=== PATIENT | male | born 1960 | race Two or more races ===

== ENCOUNTER 2016-10-23 15:01 | Inpatient (IN) | payer MEDICAID ==
[2016-10-23 16:06] LABS: HEMOGLOBIN 12.5 gm/dL (13.2-17.3); MEAN CELL VOLUME 100.9 fl (80-99); MEAN CORPUSCULAR HEMOGLOBIN 38.4 pg (26.0-30.0); PLATELET COUNT 45 Th/cmm (150-400); RED BLOOD COUNT 3.27 Mil/cmm (4.30-5.70); RED CELL DISTRIBUTION WIDTH 18.4 % (11.5-20.0); WHITE BLOOD COUNT 7.3 Th/cmm (4.8-10.8)
[2016-10-23 16:17] LABS: CHOLESTEROL 88 mg/dL (<200); TRIGLYCERIDES 63 mg/dL (<150)
[2016-10-23 16:18] LABS: ANION GAP 5.9 (7.0-16.0); BUN - UREA NITROGEN 18 mg/dL (7-25); CARBON DIOXIDE 23.7 mEq/L (21.0-31.0); CHLORIDE 105 mEq/L (98-107); CREATININE - SERUM 0.6 mg/dL (0.7-1.3); GLUCOSE 134 mg/dL (70-105); POTASSIUM SERUM 3.6 mEq/L (3.5-5.1); SODIUM SERUM 131 mEq/L (136-145)
[2016-10-23 16:19] LABS: ALB/GLOB RATIO 0.5 (1.0-1.8); ALKALINE PHOSPHATASE 78 U/L (34-104); BILIRUBIN,TOTAL 5.8 mg/dL (0.3-1.0); CALCIUM SERUM 8.8 mg/dL (8.6-10.3); SGOT 64 U/L (13-39); SGPT/ALT 52 U/L (7-52)
[2016-10-23 16:31] LABS: ANISOCYTOSIS 1+; BAND NEUTROPHILE 6 % (0-10); BASOPHIL 1 % (0-3); NEUTROPHILS 84 % (40-80); PLATELET MORPHOLOGY NORMAL (NORMAL); POLYCHROMASIA 1+; TOTAL CELLS COUNTED 100
[2016-10-23 16:32] LABS: PLATELET ESTIMATE DECREASED PLATELETS (NORMAL)
[2016-10-23] MEDS ORDERED: cefTRIAXone 1 GM in Sodium Chloride 0.9% 50 ML IV ONE (17:00)
--- NOTE | 2016-10-23 18:16 | ED Physician Chart ---
Chief Complaint/HPI - Patient Information Date Seen:: 10/23/16 Time Seen:: 15:40 Chief Complaint:: bleeding History of Present Illness:: THIS IS A 56 YO MALE [facility]IB [facility] STATING THAT THE PATIENT WAS JUST DISCHARGED FOR ANOTHER HOSPITAL BUT WENT DOWN FROM WEAKNESS. HE HAS A HISTORY OF ACOHOLIC LIVER DISEASE AND A BLEEDING DISORDER. Allergies:: Allergies Allergy/AdvReac Type Severity Reaction Status Date / Time Penicillins [PCN] AdvReac HEART Verified 10/23/16 15:50 PALPITATIONS Vitals:: Vital Signs - 8 hr 10/23/16 10/23/16 10/23/16 15:15 16:46 18:07 Temp 98.7 F HR 95 92 RR 20 18 75 BP 125/69 104/62 132/68 O2 Sat % 100 96 98 Historian:: Patient, Medical Records Review:: Nurse's Note Reviewed Review of Systems - Review of Systems General/Constitutional: No fever, No chills, Weight loss, Weakness, No diaphoresis, No edema, No loss of appetite Skin: No skin lesions, No rash, No bruising Head: No headache, No light-headedness Eyes: No loss of vision, No pain, No diplopia ENT: No earache, No nasal drainage, No sore throat, No tinnitus Neck: No neck pain, No swelling, No thyromegaly, No stiffness, No mass noted Cardio Vascular: No chest pain, No palpitations, No PND, No orthopnea, No edema Pulmonary: No SOB, No cough, No sputum, No wheezing GI: Nausea, Vomiting, No vomiting, No diarrhea, No pain, No hematochezia, No constipation, No hematemesis G/U: No dysuria, No frequency, Hematuria Musculoskeletal: No bone or joint pain, No back pain, No muscle pain Endocrine: No polyuria, No polydipsia Psychiatric: No prior psych history, No depression, No anxiety, No suicidal ideation Hematopoietic: No bruising, No lymphadenopathy Allergic/Immuno: No urticaria, No angioedema Neurological: No syncope, No focal symptoms, Weakness, No paresthesia, No headache, No seizure, No dizziness, No confusion, No vertigo Past Medical History - Past Medical History Obtainable: Yes Past Medical History: HTN, Dyslipidemia, PUD/GERD, Dementia, Other (CIRRHOSIS) Family History: None Social History: Non Smoker, Alcohol, No Drug Use Surgical History: None Psychiatricy History: Depression Medication: Reviewed Family Medical History - Family Member Mother History Unknown: Yes Physical Exam - Physical Examination General/Constitutional: Awake, Well-developed, well-nourished, Alert, No distress, GCS 15, Non-toxic appearing, Ambulatory Head: Atraumatic Eyes: Lids, conjuctiva normal, PERRL, EOMI Skin: Nl inspection, No rash, No skin lesions, No ecchymosis, Well hydrated, No lymphadenopathy ENMT: External ears, nose nl, Nasal exam nl, Lips, teeth, gums nl Neck: Nontender, Full ROM w/o pain, No JVD, No nuchal rigidity, No bruit, No mass, No stridor Respiratory: Nl effort/Exclusion, Clear to Auscultation, No Wheeze/Rhonchi/Rales Cardio Vascular: RRR, No murmur, gallop, rubs, NL S1 S2 GI: No tenderness/rebounding/guarding, No organomegaly, No hernia, Normal BS's, Nondistended, No mass/bruits, No McBurney tenderness : No CVA tenderness Extremities: No tenderness or effusion, Full ROM, normal strength in all extremities, No edema, Normal digits & nails Neuro/Psych: Alert/oriented, DTR's symmetric, Normal sensory exam, Normal motor strength, Judgement/insight normal, Mood normal, Normal gait, No focal deficits Misc: normal gait, Normal back, No paraspinal tenderness Labs/Radiology/EKG Results - Lab Results Results: Laboratory Tests 10/23/16 10/23/16 10/23/16 14:30 14:30 14:30 WBC 7.3 RBC 3.27 L Hgb 12.5 L Hct 33.0 L MCV 100.9 H MCH 38.4 H MCHC Differential 38.0 H RDW 18.4 Plt Count 45 L MPV 8.0 Band Neutrophils % 6 Neutrophils (Manual) 84 H Lymphocytes 6 L Monocytes 3 Basophils 1 Platelet Estimate DECREASED PLATELETS Platelet Morphology NORMAL Polychromasia 1+ Anisocytosis 1+ RBC Morph Micro Appear ABNORMAL Sodium 131 L Potassium 3.6 Chloride 105 Carbon Dioxide 23.7 Anion Gap 5.9 L BUN 18 Creatinine 0.6 L Est GFR ( Amer) > 60.0 Est GFR (Non-Af Amer) > 60.0 BUN/Creatinine Ratio 30.0 Glucose 134 H Calcium 8.8 Total Bilirubin 5.8 H AST 64 H ALT 52 Alkaline Phosphatase 78 Ammonia Troponin I Total Protein 7.9 Albumin 2.6 L Globulin 5.3 Albumin/Globulin Ratio 0.5 L Triglycerides 63 Cholesterol 88 LDL Cholesterol Direct 53 L HDL Cholesterol 30 Amylase TSH 10/23/16 10/23/16 10/23/16 14:30 14:30 14:30 WBC RBC Hgb Hct MCV MCH MCHC Differential RDW Plt Count MPV Band Neutrophils % Neutrophils (Manual) Lymphocytes Monocytes Basophils Platelet Estimate Platelet Morphology Polychromasia Anisocytosis RBC Morph Micro Appear Sodium Potassium Chloride Carbon Dioxide Anion Gap BUN Creatinine Est GFR ( Amer) Est GFR (Non-Af Amer) BUN/Creatinine Ratio Glucose Calcium Total Bilirubin AST ALT Alkaline Phosphatase Ammonia Troponin I < 0.01 L Total Protein Albumin Globulin Albumin/Globulin Ratio Triglycerides Cholesterol LDL Cholesterol Direct HDL Cholesterol Amylase 34 TSH 0.81 10/23/16 14:30 WBC RBC Hgb Hct MCV MCH MCHC Differential RDW Plt Count MPV Band Neutrophils % Neutrophils (Manual) Lymphocytes Monocytes Basophils Platelet Estimate Platelet Morphology Polychromasia Anisocytosis RBC Morph Micro Appear Sodium Potassium Chloride Carbon Dioxide Anion Gap BUN Creatinine Est GFR ( Amer) Est GFR (Non-Af Amer) BUN/Creatinine Ratio Glucose Calcium Total Bilirubin AST ALT Alkaline Phosphatase Ammonia 71 H Troponin I Total Protein Albumin Globulin Albumin/Globulin Ratio Triglycerides Cholesterol LDL Cholesterol Direct HDL Cholesterol Amylase TSH - Radiology Results Results: CHEST X-RAY = NAD ED Septic Shock - . Is Septic Shock (SBP<90, OR Lactate>4 mmol\L) present?: No - <6hrs of presentation: Vital Signs: Vital Signs - 8 hr 10/23/16 10/23/16 10/23/16 15:15 16:46 18:07 Temp 98.7 F HR 95 92 RR 20 18 75 BP 125/69 104/62 132/68 O2 Sat % 100 96 98 Reassessment (Disposition) - Reassessment Reassessment Condition:: Unchanged - Diagnosis Diagnosis:: LIVER FAILURE LOW PLATELETS ELEVATED AMONIUM ELEVATED BILIRUBIN - Patient Disposition Discharge/Transfer:: Acute Care w/in this hosp Admitting Medical Physician:: Madelyn Valdivia Condition at Disposition:: Improved
[2016-10-23 18:24] LABS: URINE COLOR AMBER
[2016-10-23 18:25] LABS: URINE BILIRUBIN MODERATE (NEGATIVE); URINE BLOOD NEGATIVE (NEGATIVE); URINE GLUCOSE (UA) NEGATIVE (NEGATIVE); URINE KETONE TRACE mg/dL (NEGATIVE); URINE PH 5.5; URINE PROTEIN TRACE mg/dL (NEGATIVE)
[2016-10-23 18:26] LABS: URINE BACTERIA FEW /hpf (NONE SEEN); URINE EPITHELIAL CELLS OCCASIONAL /lpf (FEW); URINE RBC NONE SEEN /hpf (0-5); URINE WBC 0-2 /hpf (0-5)
[2016-10-23 18:39] LABS: INR 1.37 (0.5-1.4); PROTHROMBIN TIME (TEST) 13.9 SECONDS (9.5-11.5)
[2016-10-23] MEDS: D5-0.45NS 1,000 ML IV SCH (21:42)
--- NOTE | 2016-10-23 22:21 | Admit Criteria Form ---
Admit Criteria Forms - Admit Criteria Diagnosis: LIVER DISEASE COMPLICATIONS Clinical Indications for Admission to Inpatient Care (Place 'X' for any and all applicable criteria): Admission is indicated for patient with ANY ONE of the following(1)(2)(3)(4): [X]I. Inpatient admission required rather than observation care because of ANY ONE of the following: [ ]a) Hemodynamic instability that is severe or persistent [ ]b) Severe electrolyte abnormalities requiring inpatient care [ ]c) Respiratory compromise that is severe or persistent [X]d) Coagulation abnormal that is severe or persistent [ ]e) Severe pain requiring acute inpatient management [ ]f) Renal insufficiency that is severe or worsening [ ]g) Metabolic abnormalities (e.g., vomiting, hypoglycemia, acidosis) that are severe or persistent [ ]h) Hypovolemia or hypervolemia that is severe or persistent [ ]i) Absent bowel sounds with complete ileus(2) [ ]j) Signs of intestinal obstruction or peritonitis[A] [ ]k) IV fluid to replace significant ongoing losses (>3 L/m2 per day) [ ]l) Continuous IV infusion of anticoagulation, platelet inhibitor, vasoactive, or antiarrhythmic medication [ ]m) Percutaneous or open drainage (e.g., abscess, biliary tract) procedures [ ]n) Parenteral nutrition regimen that must be implemented on inpatient basis [ ]o) Other condition treatment or monitoring requiring inpatient admission [ ]II. Infected hepatic hydrothorax (eg, empyema) [ ]III. Hepatorenal syndrome (eg, elevated. creatinine with adequate volume status and negative evaluation for other cause)(8) [ ]IV. Spontaneous bacterial peritonitis [ ]V. Suspected infected ascites as indicated by ANY ONE of the following: [ ]a) Temp >100 degrees F (37.8 C ) [ ]b) High WBC count [ ]c) Abdominal pain or tenderness not relieved by paracentesis [ ]. New-onset or worsening hepatic encephalopathy(7) [ ]VII. Suspected fulminant hepatic failure (e.g., acute coagulopathy with hepatic encephalopathy or acute elevation of hepatic transaminases to more than 15 times baseline)(4) [ ]VIII. Acute hepatitis (e.g., ALT and AST at least 3 times baseline) with coagulopathy or severe jaundice as indicated by ANY ONE of the following(9)(10): [ ]a) Bilirubin >20 mg/dL (342 moles/L)(11) [ ]b) Acute elevation of PT to >50% above normal or INR >1.5 [ ] IX. Treatment of injury from hepatotoxin (e.g., acetaminophen) that requires inpatient monitoring [ ] X. Acute fatty liver of Extended stay beyond goal length of stay may be needed for(3)(7): [ ]a) Hepatorenal syndrome [ ]b) Severe or persistent hepatic encephalopathy [ ]c) Renal failure due to other causes associated with cirrhosis (e.g., hypovolemia) [ ]d) Severe or persistent coagulation abnormalities [ ]e) Refractory ascites, volume, or electrolyte abnormality [ ]f) Severe or persistent gastroesophageal bleeding [ ]g) Severe infectious or hepatotoxin-induced hepatitis (eg, acetaminophen) [ ]h) Hemodynamic instability that is severe or persistent The original [employer] content created by [employer] has been revised. The portions of the content which have been revised are identified through the use of italic text or in bold, and [facility] has neither reviewed nor approved the modified material. All other unmodified content is copyright [facility]. Please see references footnoted in the original [facility] edition 2016 Admit Criteria Met?: Yes
[2016-10-23] MEDS: Lactulose 10 Gm/15 mL 30mL UDC PO SCH (23:56)
[2016-10-24] MEDS: Lactulose 10 Gm/15 mL 30mL UDC PO SCH ×4 (00:22→21:20)
[2016-10-24 02:08] VITALS: BP 99/61
[2016-10-24 06:46] LABS: HEMATOCRIT 30.6 % (39.0-49.0); HEMOGLOBIN 10.9 gm/dL (13.2-17.3); MEAN CELL VOLUME 99.5 fl (80-99); MEAN CORPUSCULAR HEMOGLOBIN 35.6 pg (26.0-30.0); MEAN CORPUSCULAR HGB CONC 35.8 pg (28.0-36.0); PLATELET COUNT 43 Th/cmm (150-400); RED BLOOD COUNT 3.08 Mil/cmm (4.30-5.70); RED CELL DISTRIBUTION WIDTH 18.2 % (11.5-20.0); WHITE BLOOD COUNT 8.1 Th/cmm (4.8-10.8)
[2016-10-24 06:57] LABS: INR 1.68 (0.5-1.4); PROTHROMBIN TIME (TEST) 17.2 SECONDS (9.5-11.5)
[2016-10-24 07:16] LABS: ANISOCYTOSIS 1+; BAND NEUTROPHILE 7 % (0-10); NEUTROPHILS 76 % (40-80); PLATELET ESTIMATE DECREASED PLATELETS (NORMAL); PLATELET MORPHOLOGY NORMAL (NORMAL); POLYCHROMASIA 1+; TOTAL CELLS COUNTED 100
[2016-10-24 07:19] LABS: ALB/GLOB RATIO 0.5 (1.0-1.8); ALKALINE PHOSPHATASE 65 U/L (34-104); ANION GAP 7.4 (7.0-16.0); BILIRUBIN,DIRECT 3.32 mg/dL (0.0-0.2); BILIRUBIN,TOTAL 6.3 mg/dL (0.3-1.0); BUN - UREA NITROGEN 19 mg/dL (7-25); BUN/CREATININE RATIO 31.7; CALCIUM SERUM 8.6 mg/dL (8.6-10.3); CARBON DIOXIDE 24.9 mEq/L (21.0-31.0); CHLORIDE 105 mEq/L (98-107); CREATININE - SERUM 0.6 mg/dL (0.7-1.3); GLUCOSE 121 mg/dL (70-105); POTASSIUM SERUM 3.3 mEq/L (3.5-5.1); SGOT 47 U/L (13-39); SGPT/ALT 41 U/L (7-52); SODIUM SERUM 134 mEq/L (136-145)
--- NOTE | 2016-10-24 09:15 | Diagnostic Imaging Report ---
CHEST X-RAY: AP view INDICATION: Bleeding, shortness of breath COMPARISON: None FINDINGS: Chronic lung changes are noted. Suboptimal lung volumes are seen with increased left basal lung markings. No focal consolidation pleural effusions. Borderline cardiomegaly is noted. Degenerative changes of the spine are noted. IMPRESSION: Chronic lung changes and suboptimal lung volumes. Increased left basal lung markings are seen which may be due to subsegmental atelectasis versus scarring. Superimposed developing infiltrate is considered less likely. No focal airspace consolidation identified.
--- NOTE | 2016-10-24 09:19 | General Progress Note ---
Subjective - Review of Systems Service Date: 10/23/16 Subjective: c/o sob Objective - Results Result Diagrams: 10/26/16 10:52 10/26/16 10:52 Recent Labs: Laboratory Last Values WBC 8.1 Th/cmm (4.8-10.8) 10/24/16 06:30 RBC 3.08 Mil/cmm (4.30-5.70) L 10/24/16 06:30 Hgb 10.9 gm/dL (13.2-17.3) L 10/24/16 06:30 Hct 30.6 % (39.0-49.0) L 10/24/16 06:30 MCV 99.5 fl (80-99) H 10/24/16 06:30 MCH 35.6 pg (26.0-30.0) H 10/24/16 06:30 MCHC Differential 35.8 pg (28.0-36.0) 10/24/16 06:30 RDW 18.2 % (11.5-20.0) 10/24/16 06:30 Plt Count 43 Th/cmm (150-400) L 10/24/16 06:30 MPV 8.0 fl 10/24/16 06:30 Band Neutrophils % 7 % (0-10) 10/24/16 06:30 Neutrophils (Manual) 76 % (40-80) 10/24/16 06:30 Lymphocytes 13 % (20-50) L 10/24/16 06:30 Monocytes 4 % (2-10) 10/24/16 06:30 Basophils 1 % (0-3) 10/23/16 14:30 Platelet Estimate DECREASED PLATELETS (NORMAL) 10/24/16 06:30 Platelet Morphology NORMAL (NORMAL) 10/24/16 06:30 Polychromasia 1+ 10/24/16 06:30 Anisocytosis 1+ 10/24/16 06:30 RBC Morph Micro Appear ABNORMAL (NORMAL) 10/24/16 06:30 PT 17.2 SECONDS (9.5-11.5) H 10/24/16 06:30 INR 1.68 (0.5-1.4) H 10/24/16 06:30 PTT (Actin FS) 33.6 SECONDS (26.0-38.0) 10/24/16 06:30 Sodium 134 mEq/L (136-145) L 10/24/16 06:30 Potassium 3.3 mEq/L (3.5-5.1) L 10/24/16 06:30 Chloride 105 mEq/L (98-107) 10/24/16 06:30 Carbon Dioxide 24.9 mEq/L (21.0-31.0) 10/24/16 06:30 Anion Gap 7.4 (7.0-16.0) 10/24/16 06:30 BUN 19 mg/dL (7-25) 10/24/16 06:30 Creatinine 0.6 mg/dL (0.7-1.3) L 10/24/16 06:30 Est GFR ( Amer) > 60.0 ml/min (>90) 10/24/16 06:30 Est GFR (Non-Af Amer) > 60.0 ml/min 10/24/16 06:30 BUN/Creatinine Ratio 31.7 10/24/16 06:30 Glucose 121 mg/dL (70-105) H 10/24/16 06:30 Calcium 8.6 mg/dL (8.6-10.3) 10/24/16 06:30 Total Bilirubin 6.3 mg/dL (0.3-1.0) H 10/24/16 06:30 Direct Bilirubin 3.32 mg/dL (0.0-0.2) H 10/24/16 06:30 AST 47 U/L (13-39) H 10/24/16 06:30 ALT 41 U/L (7-52) 10/24/16 06:30 Alkaline Phosphatase 65 U/L (34-104) 10/24/16 06:30 Ammonia 60 umol/L (16-53) H 10/24/16 06:30 Troponin I < 0.01 ng/mL (0.01-0.05) L 10/23/16 14:30 Total Protein 6.8 gm/dL (6.0-8.3) 10/24/16 06:30 Albumin 2.2 gm/dL (4.2-5.5) L 10/24/16 06:30 Globulin 4.6 gm/dL 10/24/16 06:30 Albumin/Globulin Ratio 0.5 (1.0-1.8) L 10/24/16 06:30 Triglycerides 63 mg/dL (<150) 10/23/16 14:30 Cholesterol 88 mg/dL (<200) 10/23/16 14:30 LDL Cholesterol Direct 53 mg/dL (75-193) L 10/23/16 14:30 HDL Cholesterol 30 mg/dL (23-92) 10/23/16 14:30 Amylase 34 U/L (29-103) 10/23/16 14:30 TSH 0.81 uIU/ml (0.34-5.60) 10/23/16 14:30 Urine Source CLEAN C 10/23/16 17:30 Urine Color ROBBIE 10/23/16 17:30 Urine Clarity SLIGHTLY CLOUDY (CLEAR) 10/23/16 17:30 Urine pH 5.5 10/23/16 17:30 Ur Specific [place] 1.025 (1.005-1.030) 10/23/16 17:30 Urine Protein TRACE mg/dL (NEGATIVE) 10/23/16 17:30 Urine Glucose (UA) NEGATIVE mg/dL (NEGATIVE) 10/23/16 17:30 Urine Ketones TRACE mg/dL (NEGATIVE) 10/23/16 17:30 Urine Blood NEGATIVE (NEGATIVE) 10/23/16 17:30 Urine Nitrate POSITIVE (NEGATIVE) H 10/23/16 17:30 Urine Bilirubin MODERATE (NEGATIVE) H 10/23/16 17:30 Urine Urobilinogen 4.0 E.U./dL (0.2 - 1.0) H 10/23/16 17:30 Ur Leukocyte Esterase NEGATIVE (NEGATIVE) 10/23/16 17:30 Urine RBC NONE SEEN /hpf (0-5) 10/23/16 17:30 Urine WBC 0-2 /hpf (0-5) 10/23/16 17:30 Ur Epithelial Cells OCCASIONAL /lpf (FEW) 10/23/16 17:30 Urine Bacteria FEW /hpf (NONE SEEN) 10/23/16 17:30 Urine Mucus MODERATE /lpf (FEW) 10/23/16 17:30 RPR NONREACTIVE (NONREACTIVE) 10/23/16 14:30 - Physical Exam Vitals and I&O: Vital Signs Temp 99.0 F 10/24/16 07:57 Pulse 87 10/24/16 07:57 Resp 17 10/24/16 07:57 BP 89/54 10/24/16 07:57 Pulse Ox 93 02/07/17 07:57 Intake & Output 10/23/16 10/24/16 10/24/16 18:59 06:59 18:59 Intake Total 100 Balance 100 Intake: Oral 100 Other: # Voids 2 # Bowel Movements 1 Stool Characteristics Black Active Medications: Current Medications Dextrose/Sodium Chloride (D5-0.45ns) 1,000 mls @ 75 mls/hr IV .[id number] [facility] Stop: 12/22/16 20:44 Last Admin: 10/23/16 21:42 Dose: 75 mls/hr Ceftriaxone Sodium 1 gm/ (Sodium Chloride) 50 mls @ 100 mls/hr IV Q24HR [facility] Stop: 12/23/16 20:59 Ibuprofen (Motrin) 400 mg PO Q4H PRN PRN Reason: Pain or Fever >101 Stop: 12/22/16 20:39 Last Admin: 10/24/16 07:34 Dose: 400 mg Influenza Virus Vaccine (Fluarix) 0.5 ml IM .ONCE ONE Stop: 10/24/16 10:23 Lactulose (Cephulac) 60 gm PO Q8H [facility] Stop: 12/22/16 20:44 Last Admin: 10/24/16 07:17 Dose: Not Given Pneumococcal Polyvalent Vaccine (Pneumovax) 0.5 ml IM .ONCE ONE Stop: 10/24/16 10:23 General: Alert, Moderate distress Neck: Supple Cardiovascular: Regular rate, Normal S1, Normal S2 Lungs: Clear to auscultation Abdomen: Bowel sounds Neurological: Normal gait Assessment/Plan - Problem List Patient Problems: All Active Problems copd (Acute) htn (Acute) - Plan Plan: discharge planning
[2016-10-24] MEDS: D5-0.45NS 1,000 ML IV SCH ×2 (09:35→23:27)
[2016-10-24] MEDS ORDERED: Influenza Vaccine 0.5 mL Syr IM ONE (10:22)
[2016-10-24] MEDS ORDERED: Pneumococcal Vaccine 0.5 mL Vial IM ONE (10:22)
--- NOTE | 2016-10-24 14:36 | Consultation ---
GASTROENTEROLOGY CONSULTATION REQUESTING PHYSICIAN: Bud Valdivia M.D. REASON FOR CONSULTATION: Cirrhosis. HISTORY OF PRESENT ILLNESS: A 56-year-old male with a history of alcoholism and past drug use with chronic hepatitis C and likely cirrhosis. He had a recent admission to [facility] 3 days ago for upper GI bleed. He underwent an upper endoscopy by another artificial intelligence specialist where large esophageal varices were identified. 6 rubber bands were placed. The patient was discharged home, perhaps yesterday, but was found somewhat confused and weak with possible syncopal episode. He was directed back to the ER here and subsequently admitted. He has been placed on lactulose. He feels better. He is also on Rocephin. PAST MEDICAL HISTORY: As above. MEDICATIONS: Here are Rocephin, IV fluids, Motrin p.r.n. and lactulose. ALLERGIES: PENICILLIN. SOCIAL HISTORY: No tobacco, past alcohol, past drugs. FAMILY HISTORY: Noncontributory. REVIEW OF SYSTEMS: As per history of present illness, otherwise negative. PHYSICAL EXAMINATION: VITAL SIGNS: Temperature of 99.0, blood pressure is 89/54, pulse of 87, respirations 17, O2 sat 93%. GENERAL: The patient is well-developed, well-nourished male in no acute distress, ambulating well. HEENT: Sclerae nonicteric. Oropharynx is clear. CARDIOVASCULAR: Regular rate and rhythm. LUNGS: Clear to auscultation bilaterally. ABDOMEN: Soft, nontender, nondistended, normoactive bowel sounds. EXTREMITIES: No clubbing, cyanosis or edema. RECTAL: Deferred. LABORATORY DATA AND IMAGING: WBC 8.1, hemoglobin 10.9, platelet count is 43. INR is 1.68. Creatinine is 0.6, sodium is 134, bilirubin is 6.3. AST is 47, ALT is 41, alkaline phosphatase is 65. Ammonia 60, yesterday was 71. Albumin is 2.2. ASSESSMENT: 1. 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 2. Recent upper gastrointestinal bleed requiring rubber banding of esophageal varices. 3. Possible syncope with weakness after discharge. 4. History of hypertension and hyperlipidemia. 5. Hepatic encephalopathy with elevated ammonia level. RECOMMENDATIONS: 1. Protonix. 2. Beta-yrn. 3. Lactulose. 4. Rifaximin. 5. Check liver labs and abdominal ultrasound. Thank you, Dr. Valdivia for allowing us to participate in the care of the patient. Any further questions, please call us. JOB# [id number]
--- NOTE | 2016-10-24 19:46 | Consultation ---
HEMATOLOGY/ONCOLOGY CONSULTATION: REFERRING PHYSICIAN: Bud Valdivia M.D. REASON FOR CONSULTATION: Thrombocytopenia. HISTORY OF PRESENT ILLNESS: The patient is a 56-year-old male with history of hepatitis C, drug abuse, chronic alcoholism. He presented with hepatic encephalopathy and was recently managed with esophageal banding. The patient was found to be thrombocytopenic. Therefore, I was asked to evaluate. MEDICATIONS: Reviewed. PAST MEDICAL HISTORY: As above. PHYSICAL EXAMINATION: GENERAL: The patient is awake, cooperative, feels much better. VITAL SIGNS: Stable. HEENT: Atraumatic. Pale complexion. LYMPHATIC: No peripheral lymphadenopathy. CHEST: Good air entry. ABDOMEN: Soft, nontender, no clinical ascites. EXTREMITIES: No edema. LABORATORY DATA: White count 8.1, platelets 43, hemoglobin 10.9. INR 1.68, bilirubin 6.3, direct bilirubin 3.3, elevated AST. ASSESSMENT AND PLAN: Cirrhosis with thrombocytopenia, likely secondary to splenic sequestration. The patient is anemic and he had recent history of esophageal variceal bleed and banding. We will obtain comprehensive anemia workup and abdominal ultrasound. No need for transfusion at this time. Thank you, Dr. Valdivia, for the opportunity to participate in the care of this interesting case with you. JOB# [id number]
[2016-10-24] MEDS ORDERED: cefTRIAXone 1 GM in 0.9% NS 50 ML IV SCH (21:00)
--- NOTE | 2016-10-24 21:01 | General Progress Note ---
Subjective - Review of Systems Service Date: 10/24/16 ([id number] H&P) Objective - Results Result Diagrams: 10/24/16 06:30 10/24/16 06:30 Recent Labs: Laboratory Last Values WBC 8.1 Th/cmm (4.8-10.8) 10/24/16 06:30 RBC 3.08 Mil/cmm (4.30-5.70) L 10/24/16 06:30 Hgb 10.9 gm/dL (13.2-17.3) L 10/24/16 06:30 Hct 30.6 % (39.0-49.0) L 10/24/16 06:30 MCV 99.5 fl (80-99) H 10/24/16 06:30 MCH 35.6 pg (26.0-30.0) H 10/24/16 06:30 MCHC Differential 35.8 pg (28.0-36.0) 10/24/16 06:30 RDW 18.2 % (11.5-20.0) 10/24/16 06:30 Plt Count 43 Th/cmm (150-400) L 10/24/16 06:30 MPV 8.0 fl 10/24/16 06:30 Band Neutrophils % 7 % (0-10) 10/24/16 06:30 Neutrophils (Manual) 76 % (40-80) 10/24/16 06:30 Lymphocytes 13 % (20-50) L 10/24/16 06:30 Monocytes 4 % (2-10) 10/24/16 06:30 Basophils 1 % (0-3) 10/23/16 14:30 Platelet Estimate DECREASED PLATELETS (NORMAL) 10/24/16 06:30 Platelet Morphology NORMAL (NORMAL) 10/24/16 06:30 Polychromasia 1+ 10/24/16 06:30 Anisocytosis 1+ 10/24/16 06:30 RBC Morph Micro Appear ABNORMAL (NORMAL) 10/24/16 06:30 PT 17.2 SECONDS (9.5-11.5) H 10/24/16 06:30 INR 1.68 (0.5-1.4) H 10/24/16 06:30 PTT (Actin FS) 33.6 SECONDS (26.0-38.0) 10/24/16 06:30 Sodium 134 mEq/L (136-145) L 10/24/16 06:30 Potassium 3.3 mEq/L (3.5-5.1) L 10/24/16 06:30 Chloride 105 mEq/L (98-107) 10/24/16 06:30 Carbon Dioxide 24.9 mEq/L (21.0-31.0) 10/24/16 06:30 Anion Gap 7.4 (7.0-16.0) 10/24/16 06:30 BUN 19 mg/dL (7-25) 10/24/16 06:30 Creatinine 0.6 mg/dL (0.7-1.3) L 10/24/16 06:30 Est GFR ( Amer) > 60.0 ml/min (>90) 10/24/16 06:30 Est GFR (Non-Af Amer) > 60.0 ml/min 10/24/16 06:30 BUN/Creatinine Ratio 31.7 10/24/16 06:30 Glucose 121 mg/dL (70-105) H 10/24/16 06:30 Calcium 8.6 mg/dL (8.6-10.3) 10/24/16 06:30 Total Bilirubin 6.3 mg/dL (0.3-1.0) H 10/24/16 06:30 Direct Bilirubin 3.32 mg/dL (0.0-0.2) H 10/24/16 06:30 AST 47 U/L (13-39) H 10/24/16 06:30 ALT 41 U/L (7-52) 10/24/16 06:30 Alkaline Phosphatase 65 U/L (34-104) 10/24/16 06:30 Ammonia 60 umol/L (16-53) H 10/24/16 06:30 Troponin I < 0.01 ng/mL (0.01-0.05) L 10/23/16 14:30 Total Protein 6.8 gm/dL (6.0-8.3) 10/24/16 06:30 Albumin 2.2 gm/dL (4.2-5.5) L 10/24/16 06:30 Globulin 4.6 gm/dL 10/24/16 06:30 Albumin/Globulin Ratio 0.5 (1.0-1.8) L 10/24/16 06:30 Triglycerides 63 mg/dL (<150) 10/23/16 14:30 Cholesterol 88 mg/dL (<200) 10/23/16 14:30 LDL Cholesterol Direct 53 mg/dL (75-193) L 10/23/16 14:30 HDL Cholesterol 30 mg/dL (23-92) 10/23/16 14:30 Amylase 34 U/L (29-103) 10/23/16 14:30 TSH 0.81 uIU/ml (0.34-5.60) 10/23/16 14:30 Urine Source CLEAN C 10/23/16 17:30 Urine Color ROBBIE 10/23/16 17:30 Urine Clarity SLIGHTLY CLOUDY (CLEAR) 10/23/16 17:30 Urine pH 5.5 10/23/16 17:30 Ur Specific [place] 1.025 (1.005-1.030) 10/23/16 17:30 Urine Protein TRACE mg/dL (NEGATIVE) 10/23/16 17:30 Urine Glucose (UA) NEGATIVE mg/dL (NEGATIVE) 10/23/16 17:30 Urine Ketones TRACE mg/dL (NEGATIVE) 10/23/16 17:30 Urine Blood NEGATIVE (NEGATIVE) 10/23/16 17:30 Urine Nitrate POSITIVE (NEGATIVE) H 10/23/16 17:30 Urine Bilirubin MODERATE (NEGATIVE) H 10/23/16 17:30 Urine Urobilinogen 4.0 E.U./dL (0.2 - 1.0) H 10/23/16 17:30 Ur Leukocyte Esterase NEGATIVE (NEGATIVE) 10/23/16 17:30 Urine RBC NONE SEEN /hpf (0-5) 10/23/16 17:30 Urine WBC 0-2 /hpf (0-5) 10/23/16 17:30 Ur Epithelial Cells OCCASIONAL /lpf (FEW) 10/23/16 17:30 Urine Bacteria FEW /hpf (NONE SEEN) 10/23/16 17:30 Urine Mucus MODERATE /lpf (FEW) 10/23/16 17:30 RPR NONREACTIVE (NONREACTIVE) 10/23/16 14:30 - Physical Exam Vitals and I&O: Vital Signs Temp 97.8 F 10/24/16 15:00 Pulse 85 10/24/16 15:00 Resp 18 10/24/16 15:00 BP 100/65 10/24/16 15:00 Pulse Ox 97 10/24/16 15:00 Intake & Output 10/24/16 10/24/16 10/25/16 06:59 18:59 06:59 Intake Total 100 1000 Balance 100 1000 Intake: Intake, IV Amount 1000 D5-0.45NS 1,000 ml @ 75 1000 mls/hr IV .[id number] [facility] Rx #:[id number] Oral 100 Other: # Voids 2 # Bowel Movements 1 Stool Characteristics Black Black Active Medications: Current Medications Dextrose/Sodium Chloride (D5-0.45ns) 1,000 mls @ 75 mls/hr IV .[id number] [facility] Stop: 12/22/16 20:44 Last Admin: 10/24/16 09:35 Dose: 75 mls/hr Ceftriaxone Sodium 1 gm/ (Sodium Chloride) 100 mls @ 100 mls/hr IV Q24HR [facility] Stop: 12/23/16 20:59 Ibuprofen (Motrin) 400 mg PO Q4H PRN PRN Reason: Pain or Fever >101 Stop: 12/22/16 20:39 Last Admin: 10/24/16 07:34 Dose: 400 mg Lactulose (Cephulac) 60 gm PO Q8H [facility] Stop: 12/22/16 20:44 Last Admin: 10/24/16 13:38 Dose: 60 gm Rifaximin (Xifaxan) 600 mg PO BID [facility] Stop: 12/23/16 16:59 Assessment/Plan - Assessment Assessment: POSSIBLE SYNCOPE CIRRHOSIS SECONDRY TO ALCOHOLISM HTN HYPERLIPIDEMIA HEPATIC ENCEPHALOPATHY ANEMIA
[2016-10-24] MEDS: cefTRIAXone 1 GM in Sodium Chloride 0.9% 100 ML IV SCH (21:19)
--- NOTE | 2016-10-24 21:54 | History & Physical ---
HISTORY OF PRESENT ILLNESS: This is a 56-year-old male who was here at [facility]. The patient was brought here due to confusion and weakness. PAST MEDICAL HISTORY: Alcoholism, chronic hepatitis C, cirrhosis. The patient was recently at [facility] 3 days ago for upper GI bleed. The patient had an endoscopy and was found to have a large esophageal varices. MEDICATIONS: Please see medication reconciliation form. ALLERGIES: Penicillin. SOCIAL HISTORY: A former alcoholic. Denies tobacco. The patient used to use illicit drug. FAMILY HISTORY: Noncontributory. REVIEW OF SYSTEMS: All reviewed and are negative. PHYSICAL EXAMINATION: VITAL SIGNS: Temperature 99.0, blood pressure of 102/67, heart rate of 73, respirations 18, O2 saturation 93%. GENERAL: The patient is well developed, well nourished, in no apparent distress. HEENT: PERRLA. No nasal deviation. No throat pain. CARDIOVASCULAR: S1, S2 present. LUNGS: Clear bilaterally. ABDOMEN: Soft, nontender. EXTREMITIES: No clubbing, no cyanosis. LABORATORY RESULTS: WBC 8.1, hemoglobin 10.9, creatinine 0.6, sodium 134, ammonia level of 60. ASSESSMENT: 1. Possible syncope. 2. Cirrhosis, secondary to hepatitis C and alcoholism. 3. Hypertension. 4. Hyperlipidemia. 5. Hepatic encephalopathy. PLAN: Get a GI consultation on the case. Monitor the patient's hemoglobin and hematocrit. We will do followup labs. We will have Dr. Rhodes see the patient as well. JOB# [id number]
--- NOTE | 2016-10-24 23:51 | Consultation ---
Consult Note - Consult Note Service Date: 10/24/16 Referring Physician: Madelyn Valdivia Consult Note: PHYSICIAN Consultation Note: Date of Admission: 10/23/16 Purpose of Consultation: Chief Complaint: altered mental status. History of Present Illness: Patient WILBUR KRUEGER was admitted to location [facility] Unit I with LIVER FAILURE,LOW PLATELETS,ELEVATED AMMONIA,ELEVA. Patient is 56 y male with history of hep C, cirrhosis and other medical conditions, admitted to the hospital for confusion and generalized weakness. On initial evaluation, he was afebrile and his WBC Count was 7,300. He developed fever of 100.3 degree F and started on ceftriaxone empirically. ID consult was called for further antibiotic management. Allergies Allergy/AdvReac Type Severity Reaction Status Date / Time Penicillins [PCN] AdvReac HEART Verified 10/23/16 15:50 PALPITATIONS Vital Signs Temp 97.8 F 10/24/16 15:00 Pulse 85 10/24/16 15:00 Resp 18 10/24/16 15:00 BP 100/65 10/24/16 15:00 Pulse Ox 97 10/24/16 15:00 Intake & Output 10/24/16 10/24/16 10/25/16 06:59 18:59 06:59 Intake Total 100 1000 1000 Balance 100 1000 1000 Intake: Intake, IV Amount 1000 1000 D5-0.45NS 1,000 ml @ 75 1000 1000 mls/hr IV .[id number] [facility] Rx #:[id number] Oral 100 Other: # Voids 2 # Bowel Movements 1 Stool Characteristics Black Black Laboratory Results - last 24 hr 10/24/16 10/24/16 10/24/16 06:30 06:30 06:30 WBC 8.1 RBC 3.08 L Hgb 10.9 L Hct 30.6 L MCV 99.5 H MCH 35.6 H MCHC Differential 35.8 RDW 18.2 Plt Count 43 L MPV 8.0 Band Neutrophils % 7 Neutrophils (Manual) 76 Lymphocytes 13 L Monocytes 4 Platelet Estimate DECREASED PLATELETS Platelet Morphology NORMAL Polychromasia 1+ Anisocytosis 1+ RBC Morph Micro Appear ABNORMAL PT 17.2 H INR 1.68 H PTT (Actin FS) 33.6 Sodium 134 L Potassium 3.3 L Chloride 105 Carbon Dioxide 24.9 Anion Gap 7.4 BUN 19 Creatinine 0.6 L Est GFR ( Amer) > 60.0 Est GFR (Non-Af Amer) > 60.0 BUN/Creatinine Ratio 31.7 Glucose 121 H Calcium 8.6 Total Bilirubin 6.3 H Direct Bilirubin 3.32 H AST 47 H ALT 41 Alkaline Phosphatase 65 Ammonia Total Protein 6.8 Albumin 2.2 L Globulin 4.6 Albumin/Globulin Ratio 0.5 L 10/24/16 06:30 WBC RBC Hgb Hct MCV MCH MCHC Differential RDW Plt Count MPV Band Neutrophils % Neutrophils (Manual) Lymphocytes Monocytes Platelet Estimate Platelet Morphology Polychromasia Anisocytosis RBC Morph Micro Appear PT INR PTT (Actin FS) Sodium Potassium Chloride Carbon Dioxide Anion Gap BUN Creatinine Est GFR ( Amer) Est GFR (Non-Af Amer) BUN/Creatinine Ratio Glucose Calcium Total Bilirubin Direct Bilirubin AST ALT Alkaline Phosphatase Ammonia 60 H Total Protein Albumin Globulin Albumin/Globulin Ratio Home Medication Medication Instructions Recorded Type NK [No Home Meds] 10/23/16 History Current Medications Generic Name Dose Route Start Last Admin Trade Name Freq PRN Reason Stop Dose Admin Dextrose/Sodium Chloride 1,000 mls @ 75 mls/hr 10/23/16 20:45 10/24/16 23:27 D5-0.45ns IV 12/22/16 20:44 75 mls/hr .[id number] AGATHA Administration Ceftriaxone Sodium 1 gm/ 100 mls @ 100 mls/hr 10/24/16 21:00 10/24/16 21:19 Sodium Chloride IV 12/23/16 20:59 100 mls/hr Q24HR AGATHA Administration Ibuprofen 400 mg 10/23/16 20:40 10/24/16 21:19 Motrin PO 12/22/16 20:39 400 mg Q4H PRN Administration Pain or Fever >101 Lactulose 60 gm 10/23/16 20:45 10/24/16 21:20 Cephulac PO 12/22/16 20:44 60 gm Q8H AGATHA Administration Rifaximin 600 mg 10/24/16 17:00 Xifaxan PO 12/23/16 16:59 BID AGATHA Review of Systems: A 12 point ROS was reviewed with the pertinent positive and negatives noted in the HPI. Gen: One episode of fever, otherwise, he denies any fever. C/o generalized weakness. denies any chills. HEENT: Denies diplopia, or photophobia. Denies any sore throat. RS: Denies any cough or SOB, Denies wheezing. CVS: Denies any CP, or palpitations. GI: Denies any abd pain, N/V. Denies constipations. : Denies dysuria, hematuria. 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 Skin: No rash or hives or lesions. Past Medical History Hx HTN Yes Depression No Anxiety No Social History Smoking Status Unknown if ever smoked Family Medical History Noncontributory. Physical Exam: General: WN, WD. No Acute Distress HEENT: EOMI Bilaterally, PERRLA Bilaterally, Head is normocephalic, atraumatic on inspection. Cardio: +S1/S2 Auscultated, RRR, no murmurs/rubs/gallops noted Respiratory: Clear to Auscultate Bilaterally Abdominal: Soft, Nondistended, Nontender to palpation x 4 quadrants Extremities: No Edema noted in the lower extremities Neurological: Alert and Oriented x3, Cranial Nerves II-XII intact bilaterally, Gait Steady, No Focal Deficits noted. Assessment/Plan: 1. Fever, monitor. agree with emperic antibiotic rocephin at this time. 2. Hep C with hepatic encephalopathy. 3. Cirrhosis. 4. Anemia. 5. HTN. 6. Hyperlipidemia. Recommendations: as above. GI and hematology consult has been called. Thank you, Dr Coronel for involving me in taking care of this patient. Signed,
[2016-10-25] MEDS: Lactulose 10 Gm/15 mL 30mL UDC PO SCH ×3 (04:43→20:50)
[2016-10-25 07:12] LABS: ALB/GLOB RATIO 0.5 (1.0-1.8); BILIRUBIN,DIRECT 2.01 mg/dL (0.0-0.2); BILIRUBIN,TOTAL 3.8 mg/dL (0.3-1.0)
--- NOTE | 2016-10-25 10:05 | General Progress Note ---
Subjective - Review of Systems Service Date: 10/25/16 Objective - Results Result Diagrams: 10/24/16 06:30 10/24/16 06:30 Recent Labs: Laboratory Last Values WBC 8.1 Th/cmm (4.8-10.8) 10/24/16 06:30 RBC 3.08 Mil/cmm (4.30-5.70) L 10/24/16 06:30 Hgb 10.9 gm/dL (13.2-17.3) L 10/24/16 06:30 Hct 30.6 % (39.0-49.0) L 10/24/16 06:30 MCV 99.5 fl (80-99) H 10/24/16 06:30 MCH 35.6 pg (26.0-30.0) H 10/24/16 06:30 MCHC Differential 35.8 pg (28.0-36.0) 10/24/16 06:30 RDW 18.2 % (11.5-20.0) 10/24/16 06:30 Plt Count 43 Th/cmm (150-400) L 10/24/16 06:30 MPV 8.0 fl 10/24/16 06:30 Band Neutrophils % 7 % (0-10) 10/24/16 06:30 Neutrophils (Manual) 76 % (40-80) 10/24/16 06:30 Lymphocytes 13 % (20-50) L 10/24/16 06:30 Monocytes 4 % (2-10) 10/24/16 06:30 Basophils 1 % (0-3) 10/23/16 14:30 Platelet Estimate DECREASED PLATELETS (NORMAL) 10/24/16 06:30 Platelet Morphology NORMAL (NORMAL) 10/24/16 06:30 Polychromasia 1+ 10/24/16 06:30 Anisocytosis 1+ 10/24/16 06:30 RBC Morph Micro Appear ABNORMAL (NORMAL) 10/24/16 06:30 PT 17.2 SECONDS (9.5-11.5) H 10/24/16 06:30 INR 1.68 (0.5-1.4) H 10/24/16 06:30 PTT (Actin FS) 33.6 SECONDS (26.0-38.0) 10/24/16 06:30 Sodium 134 mEq/L (136-145) L 10/24/16 06:30 Potassium 3.3 mEq/L (3.5-5.1) L 10/24/16 06:30 Chloride 105 mEq/L (98-107) 10/24/16 06:30 Carbon Dioxide 24.9 mEq/L (21.0-31.0) 10/24/16 06:30 Anion Gap 7.4 (7.0-16.0) 10/24/16 06:30 BUN 19 mg/dL (7-25) 10/24/16 06:30 Creatinine 0.6 mg/dL (0.7-1.3) L 10/24/16 06:30 Est GFR ( Amer) > 60.0 ml/min (>90) 10/24/16 06:30 Est GFR (Non-Af Amer) > 60.0 ml/min 10/24/16 06:30 BUN/Creatinine Ratio 31.7 10/24/16 06:30 Glucose 121 mg/dL (70-105) H 10/24/16 06:30 Calcium 8.6 mg/dL (8.6-10.3) 10/24/16 06:30 Total Bilirubin 3.8 mg/dL (0.3-1.0) H 10/25/16 06:05 Direct Bilirubin 2.01 mg/dL (0.0-0.2) H 10/25/16 06:05 AST 41 U/L (13-39) H 10/25/16 06:05 ALT 36 U/L (7-52) 10/25/16 06:05 Alkaline Phosphatase 85 U/L (34-104) 10/25/16 06:05 Ammonia 60 umol/L (16-53) H 10/24/16 06:30 Troponin I < 0.01 ng/mL (0.01-0.05) L 10/23/16 14:30 Total Protein 6.6 gm/dL (6.0-8.3) 10/25/16 06:05 Albumin 2.1 gm/dL (4.2-5.5) L 10/25/16 06:05 Globulin 4.5 gm/dL 10/25/16 06:05 Albumin/Globulin Ratio 0.5 (1.0-1.8) L 10/25/16 06:05 Triglycerides 63 mg/dL (<150) 10/23/16 14:30 Cholesterol 88 mg/dL (<200) 10/23/16 14:30 LDL Cholesterol Direct 53 mg/dL (75-193) L 10/23/16 14:30 HDL Cholesterol 30 mg/dL (23-92) 10/23/16 14:30 Amylase 34 U/L (29-103) 10/23/16 14:30 TSH 0.81 uIU/ml (0.34-5.60) 10/23/16 14:30 Urine Source CLEAN C 10/23/16 17:30 Urine Color ROBBIE 10/23/16 17:30 Urine Clarity SLIGHTLY CLOUDY (CLEAR) 10/23/16 17:30 Urine pH 5.5 10/23/16 17:30 Ur Specific [place] 1.025 (1.005-1.030) 10/23/16 17:30 Urine Protein TRACE mg/dL (NEGATIVE) 10/23/16 17:30 Urine Glucose (UA) NEGATIVE mg/dL (NEGATIVE) 10/23/16 17:30 Urine Ketones TRACE mg/dL (NEGATIVE) 10/23/16 17:30 Urine Blood NEGATIVE (NEGATIVE) 10/23/16 17:30 Urine Nitrate POSITIVE (NEGATIVE) H 10/23/16 17:30 Urine Bilirubin MODERATE (NEGATIVE) H 10/23/16 17:30 Urine Urobilinogen 4.0 E.U./dL (0.2 - 1.0) H 10/23/16 17:30 Ur Leukocyte Esterase NEGATIVE (NEGATIVE) 10/23/16 17:30 Urine RBC NONE SEEN /hpf (0-5) 10/23/16 17:30 Urine WBC 0-2 /hpf (0-5) 10/23/16 17:30 Ur Epithelial Cells OCCASIONAL /lpf (FEW) 10/23/16 17:30 Urine Bacteria FEW /hpf (NONE SEEN) 10/23/16 17:30 Urine Mucus MODERATE /lpf (FEW) 10/23/16 17:30 RPR NONREACTIVE (NONREACTIVE) 10/23/16 14:30 - Physical Exam Vitals and I&O: Vital Signs Temp 99.0 F 10/25/16 07:56 Pulse 89 10/25/16 07:56 Resp 18 10/25/16 07:56 BP 98/58 10/25/16 07:56 Pulse Ox 97 10/25/16 07:56 Intake & Output 10/24/16 10/25/16 10/25/16 18:59 06:59 18:59 Intake Total 1000 1150 Balance 1000 1150 Intake: Intake, IV Amount 1000 1000 D5-0.45NS 1,000 ml @ 75 1000 1000 mls/hr IV .[id number] [facility] Rx #:[id number] Oral 150 Other: # Voids 3 # Bowel Movements 3 Stool Characteristics Black Black Active Medications: Current Medications Dextrose/Sodium Chloride (D5-0.45ns) 1,000 mls @ 75 mls/hr IV .[id number] [facility] Stop: 12/22/16 20:44 Last Admin: 10/24/16 23:27 Dose: 75 mls/hr Ceftriaxone Sodium 1 gm/ (Sodium Chloride) 100 mls @ 100 mls/hr IV Q24HR [facility] Stop: 12/23/16 20:59 Last Admin: 10/24/16 21:19 Dose: 100 mls/hr Ibuprofen (Motrin) 400 mg PO Q4H PRN PRN Reason: Pain or Fever >101 Stop: 12/22/16 20:39 Last Admin: 10/24/16 21:19 Dose: 400 mg Lactulose (Cephulac) 60 gm PO Q8H [facility] Stop: 12/22/16 20:44 Last Admin: 10/25/16 04:43 Dose: Not Given Rifaximin (Xifaxan) 600 mg PO BID [facility] Stop: 12/23/16 16:59 General: Alert, Oriented x3 Neck: Supple Lungs: Clear to auscultation Abdomen: Bowel sounds Neurological: Normal gait Psych/Mental Status: Mental status NL (labs wnl) Assessment/Plan - Assessment Assessment: POSSIBLE SYNCOPE CIRRHOSIS SECONDRY TO ALCOHOLISM HTN HYPERLIPIDEMIA HEPATIC ENCEPHALOPATHY ANEMIA
--- NOTE | 2016-10-25 12:22 | Diagnostic Imaging Report ---
Ultrasound abdomen HISTORY: Cirrhosis, mass, ascites COMPARISON: None Technique: Sonography of the abdomen was performed in multiple planes. FINDINGS: Exam is limited due to bowel gas. The visualized portions of the pancreas are grossly unremarkable. The liver demonstrates normal echogenicity and measures 17.9 cm. The liver margins are not well-defined, however, no evidence of focal lesions. Distended gallbladder is seen with diffuse gallbladder sludge. The gallbladder wall measures 6 mm. The common bile duct measures 4 mm. There small amount of free fluid surrounding the gallbladder and liver. Evaluation of pancreas is limited due to bowel gas. The right kidney measures 12.8 cm. The left kidney measures 12.6 cm. The renal margins are not well-defined however no evidence of focal lesions or hydronephrosis. The spleen measures 16.3 cm. IMPRESSION: Limited exam due to bowel gas Mild hepatomegaly. No discrete focal lesions identified. Consider follow up CT examination if indicated. Splenomegaly with spleen measuring 16.3 cm. Diffuse gallbladder sludge. Small gallstones cannot be completely excluded. There is also prominence of the gallbladder wall with small amount of free fluid seen surrounding the gallbladder and liver. If indicated nuclear medicine HIDA scan may be obtained for further assessment. Mild increased bilateral renal sizes, nonspecific. No hydronephrosis.
[2016-10-25 12:28] LABS: AMPHETAMINE URINE NEGATIVE (NEGATIVE); BARBITURATES URINE NEGATIVE (NEGATIVE)
[2016-10-25] MEDS: D5-0.45NS 1,000 ML IV SCH (19:05)
--- NOTE | 2016-10-25 20:12 | General Progress Note ---
Subjective - Review of Systems Service Date: 10/25/16 Subjective: EVENTS NOTED. NO GI BLEEDING. ARCHIE ORAL DIET. NO ABD PAIN. Objective - Results Result Diagrams: 10/24/16 06:30 10/24/16 06:30 Recent Labs: Laboratory Last Values WBC 8.1 Th/cmm (4.8-10.8) 10/24/16 06:30 RBC 3.08 Mil/cmm (4.30-5.70) L 10/24/16 06:30 Hgb 10.9 gm/dL (13.2-17.3) L 10/24/16 06:30 Hct 30.6 % (39.0-49.0) L 10/24/16 06:30 MCV 99.5 fl (80-99) H 10/24/16 06:30 MCH 35.6 pg (26.0-30.0) H 10/24/16 06:30 MCHC Differential 35.8 pg (28.0-36.0) 10/24/16 06:30 RDW 18.2 % (11.5-20.0) 10/24/16 06:30 Plt Count 43 Th/cmm (150-400) L 10/24/16 06:30 MPV 8.0 fl 10/24/16 06:30 Band Neutrophils % 7 % (0-10) 10/24/16 06:30 Neutrophils (Manual) 76 % (40-80) 10/24/16 06:30 Lymphocytes 13 % (20-50) L 10/24/16 06:30 Monocytes 4 % (2-10) 10/24/16 06:30 Basophils 1 % (0-3) 10/23/16 14:30 Platelet Estimate DECREASED PLATELETS (NORMAL) 10/24/16 06:30 Platelet Morphology NORMAL (NORMAL) 10/24/16 06:30 Polychromasia 1+ 10/24/16 06:30 Anisocytosis 1+ 10/24/16 06:30 RBC Morph Micro Appear ABNORMAL (NORMAL) 10/24/16 06:30 PT 17.2 SECONDS (9.5-11.5) H 10/24/16 06:30 INR 1.68 (0.5-1.4) H 10/24/16 06:30 PTT (Actin FS) 33.6 SECONDS (26.0-38.0) 10/24/16 06:30 Sodium 134 mEq/L (136-145) L 10/24/16 06:30 Potassium 3.3 mEq/L (3.5-5.1) L 10/24/16 06:30 Chloride 105 mEq/L (98-107) 10/24/16 06:30 Carbon Dioxide 24.9 mEq/L (21.0-31.0) 10/24/16 06:30 Anion Gap 7.4 (7.0-16.0) 10/24/16 06:30 BUN 19 mg/dL (7-25) 10/24/16 06:30 Creatinine 0.6 mg/dL (0.7-1.3) L 10/24/16 06:30 Est GFR ( Amer) > 60.0 ml/min (>90) 10/24/16 06:30 Est GFR (Non-Af Amer) > 60.0 ml/min 10/24/16 06:30 BUN/Creatinine Ratio 31.7 10/24/16 06:30 Glucose 121 mg/dL (70-105) H 10/24/16 06:30 Calcium 8.6 mg/dL (8.6-10.3) 10/24/16 06:30 Total Bilirubin 3.8 mg/dL (0.3-1.0) H 10/25/16 06:05 Direct Bilirubin 2.01 mg/dL (0.0-0.2) H 10/25/16 06:05 AST 41 U/L (13-39) H 10/25/16 06:05 ALT 36 U/L (7-52) 10/25/16 06:05 Alkaline Phosphatase 85 U/L (34-104) 10/25/16 06:05 Ammonia 60 umol/L (16-53) H 10/24/16 06:30 Troponin I < 0.01 ng/mL (0.01-0.05) L 10/23/16 14:30 Total Protein 6.6 gm/dL (6.0-8.3) 10/25/16 06:05 Albumin 2.1 gm/dL (4.2-5.5) L 10/25/16 06:05 Globulin 4.5 gm/dL 10/25/16 06:05 Albumin/Globulin Ratio 0.5 (1.0-1.8) L 10/25/16 06:05 Triglycerides 63 mg/dL (<150) 10/23/16 14:30 Cholesterol 88 mg/dL (<200) 10/23/16 14:30 LDL Cholesterol Direct 53 mg/dL (75-193) L 10/23/16 14:30 HDL Cholesterol 30 mg/dL (23-92) 10/23/16 14:30 Amylase 34 U/L (29-103) 10/23/16 14:30 TSH 0.81 uIU/ml (0.34-5.60) 10/23/16 14:30 Urine Source CLEAN C 10/23/16 17:30 Urine Color ROBBIE 10/23/16 17:30 Urine Clarity SLIGHTLY CLOUDY (CLEAR) 10/23/16 17:30 Urine pH 5.5 10/23/16 17:30 Ur Specific [place] 1.025 (1.005-1.030) 10/23/16 17:30 Urine Protein TRACE mg/dL (NEGATIVE) 10/23/16 17:30 Urine Glucose (UA) NEGATIVE mg/dL (NEGATIVE) 10/23/16 17:30 Urine Ketones TRACE mg/dL (NEGATIVE) 10/23/16 17:30 Urine Blood NEGATIVE (NEGATIVE) 10/23/16 17:30 Urine Nitrate POSITIVE (NEGATIVE) H 10/23/16 17:30 Urine Bilirubin MODERATE (NEGATIVE) H 10/23/16 17:30 Urine Urobilinogen 4.0 E.U./dL (0.2 - 1.0) H 10/23/16 17:30 Ur Leukocyte Esterase NEGATIVE (NEGATIVE) 10/23/16 17:30 Urine RBC NONE SEEN /hpf (0-5) 10/23/16 17:30 Urine WBC 0-2 /hpf (0-5) 10/23/16 17:30 Ur Epithelial Cells OCCASIONAL /lpf (FEW) 10/23/16 17:30 Urine Bacteria FEW /hpf (NONE SEEN) 10/23/16 17:30 Urine Mucus MODERATE /lpf (FEW) 10/23/16 17:30 Stool Occult Blood NEGATIVE (NEGATIVE) 10/25/16 15:41 Urine Opiates Screen NEGATIVE (NEGATIVE) 10/25/16 11:48 Ur Barbiturates Screen NEGATIVE (NEGATIVE) 10/25/16 11:48 Ur Phencyclidine Scrn NEGATIVE (NEGATIVE) 10/25/16 11:48 Amphetamines Screen NEGATIVE (NEGATIVE) 10/25/16 11:48 U Methamphetamines Scrn NEGATIVE (NEGATIVE) 10/25/16 11:48 U Benzodiazepines Scrn NEGATIVE (NEGATIVE) 10/25/16 11:48 U Cocaine Metab Screen NEGATIVE (NEGATIVE) 10/25/16 11:48 U Cannabinoids Screen POSITIVE (NEGATIVE) H 10/25/16 11:48 RPR NONREACTIVE (NONREACTIVE) 10/23/16 14:30 - Physical Exam Vitals and I&O: Vital Signs Temp 99.0 F 10/25/16 16:00 Pulse 76 10/25/16 16:00 Resp 18 10/25/16 16:00 BP 102/59 10/25/16 16:00 Pulse Ox 98 10/25/16 16:00 Intake & Output 10/25/16 10/25/16 10/26/16 06:59 18:59 06:59 Intake Total 1150 1500 Output Total 1000 Balance 1150 500 Intake: Intake, IV Amount 1000 1000 D5-0.45NS 1,000 ml @ 75 1000 1000 mls/hr IV .[id number] [facility] Rx #:[id number] Oral 150 500 Output: Urine 1000 Other: # Voids 3 3 # Bowel Movements 3 1 Stool Characteristics Black Black Active Medications: Current Medications Dextrose/Sodium Chloride (D5-0.45ns) 1,000 mls @ 75 mls/hr IV .[id number] [facility] Stop: 12/22/16 20:44 Last Admin: 10/25/16 19:05 Dose: 75 mls/hr Ceftriaxone Sodium 1 gm/ (Sodium Chloride) 100 mls @ 100 mls/hr IV Q24HR [facility] Stop: 12/23/16 20:59 Last Admin: 10/24/16 21:19 Dose: 100 mls/hr Ibuprofen (Motrin) 400 mg PO Q4H PRN PRN Reason: Pain or Fever >101 Stop: 12/22/16 20:39 Last Admin: 10/24/16 21:19 Dose: 400 mg Lactulose (Cephulac) 60 gm PO Q8H [facility] Stop: 12/22/16 20:44 Last Admin: 10/25/16 13:20 Dose: 60 gm Pantoprazole Sodium (Protonix) 40 mg PO DAILY [facility] Stop: 12/25/16 08:59 Propranolol HCl (Inderal) 10 mg PO TID [facility] Stop: 12/24/16 20:59 Rifaximin (Xifaxan) 600 mg PO BID [facility] Stop: 12/23/16 16:59 Last Admin: 10/25/16 17:23 Dose: 600 mg General: Alert HEENT: Atraumatic Neck: Supple Cardiovascular: Regular rate Lungs: Clear to auscultation Abdomen: Bowel sounds, Soft Assessment/Plan - Assessment Assessment: 1. DECOMPENSATED ALCOHOLIC CIRRHOSIS. 2. RECENT ESOPH VARICEAL BLEEDING S/P BANDING. 3. HEP ENCEPH. 4. ANEMIA. 5. THROMBOCYTOPENIA. 6. COAGULOPATHY. 7. CANNIBUS ABUSE. - Plan Plan: 1. PROTONIX. 2. INDERAL. 3. 2 GM NA DIET. 4. NEEDS REPEAT EGD IN 2 MO TO REPEAT BANDING UNTIL VARICEAL OBLITERATION. 5. F/U LIVER LABS. 6. LACTULOSE AND RIFAXIMIN. 7. GI LANDA STABLE FOR D/C.
[2016-10-25] MEDS: cefTRIAXone 1 GM in Sodium Chloride 0.9% 100 ML IV SCH (20:50)
--- NOTE | 2016-10-25 23:52 | Infectious Disease Prog Note ---
Infectious Disease Subjective - Review of Systems Service Date: 10/25/16 Subjective: There is no new change. Infectious Disease Objective - Results Result Diagrams: 10/24/16 06:30 10/24/16 06:30 Recent Labs: Laboratory Last Values WBC 8.1 Th/cmm (4.8-10.8) 10/24/16 06:30 RBC 3.08 Mil/cmm (4.30-5.70) L 10/24/16 06:30 Hgb 10.9 gm/dL (13.2-17.3) L 10/24/16 06:30 Hct 30.6 % (39.0-49.0) L 10/24/16 06:30 MCV 99.5 fl (80-99) H 10/24/16 06:30 MCH 35.6 pg (26.0-30.0) H 10/24/16 06:30 MCHC Differential 35.8 pg (28.0-36.0) 10/24/16 06:30 RDW 18.2 % (11.5-20.0) 10/24/16 06:30 Plt Count 43 Th/cmm (150-400) L 10/24/16 06:30 MPV 8.0 fl 10/24/16 06:30 Band Neutrophils % 7 % (0-10) 10/24/16 06:30 Neutrophils (Manual) 76 % (40-80) 10/24/16 06:30 Lymphocytes 13 % (20-50) L 10/24/16 06:30 Monocytes 4 % (2-10) 10/24/16 06:30 Basophils 1 % (0-3) 10/23/16 14:30 Platelet Estimate DECREASED PLATELETS (NORMAL) 10/24/16 06:30 Platelet Morphology NORMAL (NORMAL) 10/24/16 06:30 Polychromasia 1+ 10/24/16 06:30 Anisocytosis 1+ 10/24/16 06:30 RBC Morph Micro Appear ABNORMAL (NORMAL) 10/24/16 06:30 PT 17.2 SECONDS (9.5-11.5) H 10/24/16 06:30 INR 1.68 (0.5-1.4) H 10/24/16 06:30 PTT (Actin FS) 33.6 SECONDS (26.0-38.0) 10/24/16 06:30 Sodium 134 mEq/L (136-145) L 10/24/16 06:30 Potassium 3.3 mEq/L (3.5-5.1) L 10/24/16 06:30 Chloride 105 mEq/L (98-107) 10/24/16 06:30 Carbon Dioxide 24.9 mEq/L (21.0-31.0) 10/24/16 06:30 Anion Gap 7.4 (7.0-16.0) 10/24/16 06:30 BUN 19 mg/dL (7-25) 10/24/16 06:30 Creatinine 0.6 mg/dL (0.7-1.3) L 10/24/16 06:30 Est GFR ( Amer) > 60.0 ml/min (>90) 10/24/16 06:30 Est GFR (Non-Af Amer) > 60.0 ml/min 10/24/16 06:30 BUN/Creatinine Ratio 31.7 10/24/16 06:30 Glucose 121 mg/dL (70-105) H 10/24/16 06:30 Calcium 8.6 mg/dL (8.6-10.3) 10/24/16 06:30 Total Bilirubin 3.8 mg/dL (0.3-1.0) H 10/25/16 06:05 Direct Bilirubin 2.01 mg/dL (0.0-0.2) H 10/25/16 06:05 AST 41 U/L (13-39) H 10/25/16 06:05 ALT 36 U/L (7-52) 10/25/16 06:05 Alkaline Phosphatase 85 U/L (34-104) 10/25/16 06:05 Ammonia 60 umol/L (16-53) H 10/24/16 06:30 Troponin I < 0.01 ng/mL (0.01-0.05) L 10/23/16 14:30 Total Protein 6.6 gm/dL (6.0-8.3) 10/25/16 06:05 Albumin 2.1 gm/dL (4.2-5.5) L 10/25/16 06:05 Globulin 4.5 gm/dL 10/25/16 06:05 Albumin/Globulin Ratio 0.5 (1.0-1.8) L 10/25/16 06:05 Triglycerides 63 mg/dL (<150) 10/23/16 14:30 Cholesterol 88 mg/dL (<200) 10/23/16 14:30 LDL Cholesterol Direct 53 mg/dL (75-193) L 10/23/16 14:30 HDL Cholesterol 30 mg/dL (23-92) 10/23/16 14:30 Amylase 34 U/L (29-103) 10/23/16 14:30 TSH 0.81 uIU/ml (0.34-5.60) 10/23/16 14:30 Urine Source CLEAN C 10/23/16 17:30 Urine Color ROBBIE 10/23/16 17:30 Urine Clarity SLIGHTLY CLOUDY (CLEAR) 10/23/16 17:30 Urine pH 5.5 10/23/16 17:30 Ur Specific [place] 1.025 (1.005-1.030) 10/23/16 17:30 Urine Protein TRACE mg/dL (NEGATIVE) 10/23/16 17:30 Urine Glucose (UA) NEGATIVE mg/dL (NEGATIVE) 10/23/16 17:30 Urine Ketones TRACE mg/dL (NEGATIVE) 10/23/16 17:30 Urine Blood NEGATIVE (NEGATIVE) 10/23/16 17:30 Urine Nitrate POSITIVE (NEGATIVE) H 10/23/16 17:30 Urine Bilirubin MODERATE (NEGATIVE) H 10/23/16 17:30 Urine Urobilinogen 4.0 E.U./dL (0.2 - 1.0) H 10/23/16 17:30 Ur Leukocyte Esterase NEGATIVE (NEGATIVE) 10/23/16 17:30 Urine RBC NONE SEEN /hpf (0-5) 10/23/16 17:30 Urine WBC 0-2 /hpf (0-5) 10/23/16 17:30 Ur Epithelial Cells OCCASIONAL /lpf (FEW) 10/23/16 17:30 Urine Bacteria FEW /hpf (NONE SEEN) 10/23/16 17:30 Urine Mucus MODERATE /lpf (FEW) 10/23/16 17:30 Stool Occult Blood NEGATIVE (NEGATIVE) 10/25/16 15:41 Urine Opiates Screen NEGATIVE (NEGATIVE) 10/25/16 11:48 Ur Barbiturates Screen NEGATIVE (NEGATIVE) 10/25/16 11:48 Ur Phencyclidine Scrn NEGATIVE (NEGATIVE) 10/25/16 11:48 Amphetamines Screen NEGATIVE (NEGATIVE) 10/25/16 11:48 U Methamphetamines Scrn NEGATIVE (NEGATIVE) 10/25/16 11:48 U Benzodiazepines Scrn NEGATIVE (NEGATIVE) 10/25/16 11:48 U Cocaine Metab Screen NEGATIVE (NEGATIVE) 10/25/16 11:48 U Cannabinoids Screen POSITIVE (NEGATIVE) H 10/25/16 11:48 RPR NONREACTIVE (NONREACTIVE) 10/23/16 14:30 - Physical Exam Vitals and I&O: Vital Signs Temp 99.7 F 10/25/16 20:00 Pulse 86 10/25/16 21:00 Resp 18 10/25/16 20:00 BP 110/50 10/25/16 21:00 Pulse Ox 99 10/25/16 20:00 Intake & Output 10/25/16 10/25/16 10/26/16 06:59 18:59 06:59 Intake Total 1250 1500 600 Output Total 1000 100 Balance 1250 500 500 Intake: Intake, IV Amount 1100 1000 100 D5-0.45NS 1,000 ml @ 75 1000 1000 mls/hr IV .[id number] [facility] Rx #:[id number] cefTRIAXone 1 gm In 100 100 Sodium Chloride 0.9% 100 ml @ 100 mls/hr IV Q24HR [facility] Rx#:[id number] Oral 150 500 500 Output: Urine 1000 100 Other: # Voids 3 3 1 # Bowel Movements 3 1 Stool Characteristics Black Black Brown Black Active Medications: Current Medications Dextrose/Sodium Chloride (D5-0.45ns) 1,000 mls @ 75 mls/hr IV .[id number] [facility] Stop: 12/22/16 20:44 Last Admin: 10/25/16 19:05 Dose: 75 mls/hr Ceftriaxone Sodium 1 gm/ (Sodium Chloride) 100 mls @ 100 mls/hr IV Q24HR [facility] Stop: 12/23/16 20:59 Last Infusion: 10/25/16 21:50 Dose: Infused Ibuprofen (Motrin) 400 mg PO Q4H PRN PRN Reason: Pain or Fever >101 Stop: 12/22/16 20:39 Last Admin: 10/24/16 21:19 Dose: 400 mg Lactulose (Cephulac) 60 gm PO Q8H [facility] Stop: 12/22/16 20:44 Last Admin: 10/25/16 20:50 Dose: 60 gm Pantoprazole Sodium (Protonix) 40 mg PO DAILY [facility] Stop: 12/25/16 08:59 Propranolol HCl (Inderal) 10 mg PO TID [facility] Stop: 12/24/16 20:59 Last Admin: 10/25/16 21:00 Dose: Not Given Rifaximin (Xifaxan) 600 mg PO BID [facility] Stop: 12/23/16 16:59 Last Admin: 10/25/16 17:23 Dose: 600 mg General: no acute distress, well developed, well nourished HEENT: atraumatic, normocephalic, PERRLA, EOMI Neck: supple, no thyromegaly, no lymphadenopathy Cardiovascular: S1S2, regular Lungs: clear to auscultation bilaterally, clear to percussion Abdomen: soft, no tender, no distended Extremities: no cyanosis, no clubbing, no edema Neurological: awake, alert, oriented, CN 2-12 intact Skin: intact Infectious Disease Assmt/Plan - Assessment Assessment: Impression: 1. UTI 2. HepC 3. Cirrhosis. - Plan Plan: Radha davis.
[2016-10-26] MEDS: Lactulose 10 Gm/15 mL 30mL UDC PO SCH ×3 (05:03→22:10)
[2016-10-26] MEDS: Pantoprazole 40 mg EC Tab PO SCH (08:34)
--- NOTE | 2016-10-26 09:18 | General Progress Note ---
Objective - Results Result Diagrams: 10/24/16 06:30 10/24/16 06:30 Recent Labs: Laboratory Last Values WBC 8.1 Th/cmm (4.8-10.8) 10/24/16 06:30 RBC 3.08 Mil/cmm (4.30-5.70) L 10/24/16 06:30 Hgb 10.9 gm/dL (13.2-17.3) L 10/24/16 06:30 Hct 30.6 % (39.0-49.0) L 10/24/16 06:30 MCV 99.5 fl (80-99) H 10/24/16 06:30 MCH 35.6 pg (26.0-30.0) H 10/24/16 06:30 MCHC Differential 35.8 pg (28.0-36.0) 10/24/16 06:30 RDW 18.2 % (11.5-20.0) 10/24/16 06:30 Plt Count 43 Th/cmm (150-400) L 10/24/16 06:30 MPV 8.0 fl 10/24/16 06:30 Band Neutrophils % 7 % (0-10) 10/24/16 06:30 Neutrophils (Manual) 76 % (40-80) 10/24/16 06:30 Lymphocytes 13 % (20-50) L 10/24/16 06:30 Monocytes 4 % (2-10) 10/24/16 06:30 Basophils 1 % (0-3) 10/23/16 14:30 Platelet Estimate DECREASED PLATELETS (NORMAL) 10/24/16 06:30 Platelet Morphology NORMAL (NORMAL) 10/24/16 06:30 Polychromasia 1+ 10/24/16 06:30 Anisocytosis 1+ 10/24/16 06:30 RBC Morph Micro Appear ABNORMAL (NORMAL) 10/24/16 06:30 PT 17.2 SECONDS (9.5-11.5) H 10/24/16 06:30 INR 1.68 (0.5-1.4) H 10/24/16 06:30 PTT (Actin FS) 33.6 SECONDS (26.0-38.0) 10/24/16 06:30 Sodium 134 mEq/L (136-145) L 10/24/16 06:30 Potassium 3.3 mEq/L (3.5-5.1) L 10/24/16 06:30 Chloride 105 mEq/L (98-107) 10/24/16 06:30 Carbon Dioxide 24.9 mEq/L (21.0-31.0) 10/24/16 06:30 Anion Gap 7.4 (7.0-16.0) 10/24/16 06:30 BUN 19 mg/dL (7-25) 10/24/16 06:30 Creatinine 0.6 mg/dL (0.7-1.3) L 10/24/16 06:30 Est GFR ( Amer) > 60.0 ml/min (>90) 10/24/16 06:30 Est GFR (Non-Af Amer) > 60.0 ml/min 10/24/16 06:30 BUN/Creatinine Ratio 31.7 10/24/16 06:30 Glucose 121 mg/dL (70-105) H 10/24/16 06:30 Calcium 8.6 mg/dL (8.6-10.3) 10/24/16 06:30 Total Bilirubin 3.8 mg/dL (0.3-1.0) H 10/25/16 06:05 Direct Bilirubin 2.01 mg/dL (0.0-0.2) H 10/25/16 06:05 AST 41 U/L (13-39) H 10/25/16 06:05 ALT 36 U/L (7-52) 10/25/16 06:05 Alkaline Phosphatase 85 U/L (34-104) 10/25/16 06:05 Ammonia 60 umol/L (16-53) H 10/24/16 06:30 Troponin I < 0.01 ng/mL (0.01-0.05) L 10/23/16 14:30 Total Protein 6.6 gm/dL (6.0-8.3) 10/25/16 06:05 Albumin 2.1 gm/dL (4.2-5.5) L 10/25/16 06:05 Globulin 4.5 gm/dL 10/25/16 06:05 Albumin/Globulin Ratio 0.5 (1.0-1.8) L 10/25/16 06:05 Triglycerides 63 mg/dL (<150) 10/23/16 14:30 Cholesterol 88 mg/dL (<200) 10/23/16 14:30 LDL Cholesterol Direct 53 mg/dL (75-193) L 10/23/16 14:30 HDL Cholesterol 30 mg/dL (23-92) 10/23/16 14:30 Amylase 34 U/L (29-103) 10/23/16 14:30 TSH 0.81 uIU/ml (0.34-5.60) 10/23/16 14:30 Urine Source CLEAN C 10/23/16 17:30 Urine Color ROBBIE 10/23/16 17:30 Urine Clarity SLIGHTLY CLOUDY (CLEAR) 10/23/16 17:30 Urine pH 5.5 10/23/16 17:30 Ur Specific [place] 1.025 (1.005-1.030) 10/23/16 17:30 Urine Protein TRACE mg/dL (NEGATIVE) 10/23/16 17:30 Urine Glucose (UA) NEGATIVE mg/dL (NEGATIVE) 10/23/16 17:30 Urine Ketones TRACE mg/dL (NEGATIVE) 10/23/16 17:30 Urine Blood NEGATIVE (NEGATIVE) 10/23/16 17:30 Urine Nitrate POSITIVE (NEGATIVE) H 10/23/16 17:30 Urine Bilirubin MODERATE (NEGATIVE) H 10/23/16 17:30 Urine Urobilinogen 4.0 E.U./dL (0.2 - 1.0) H 10/23/16 17:30 Ur Leukocyte Esterase NEGATIVE (NEGATIVE) 10/23/16 17:30 Urine RBC NONE SEEN /hpf (0-5) 10/23/16 17:30 Urine WBC 0-2 /hpf (0-5) 10/23/16 17:30 Ur Epithelial Cells OCCASIONAL /lpf (FEW) 10/23/16 17:30 Urine Bacteria FEW /hpf (NONE SEEN) 10/23/16 17:30 Urine Mucus MODERATE /lpf (FEW) 10/23/16 17:30 Stool Occult Blood NEGATIVE (NEGATIVE) 10/25/16 15:41 Urine Opiates Screen NEGATIVE (NEGATIVE) 10/25/16 11:48 Ur Barbiturates Screen NEGATIVE (NEGATIVE) 10/25/16 11:48 Ur Phencyclidine Scrn NEGATIVE (NEGATIVE) 10/25/16 11:48 Amphetamines Screen NEGATIVE (NEGATIVE) 10/25/16 11:48 U Methamphetamines Scrn NEGATIVE (NEGATIVE) 10/25/16 11:48 U Benzodiazepines Scrn NEGATIVE (NEGATIVE) 10/25/16 11:48 U Cocaine Metab Screen NEGATIVE (NEGATIVE) 10/25/16 11:48 U Cannabinoids Screen POSITIVE (NEGATIVE) H 10/25/16 11:48 RPR NONREACTIVE (NONREACTIVE) 10/23/16 14:30 - Physical Exam Vitals and I&O: Vital Signs Temp 98.4 F 10/26/16 08:00 Pulse 86 10/26/16 08:36 Resp 18 10/26/16 08:00 BP 109/77 10/26/16 08:36 Pulse Ox 98 10/26/16 08:00 Intake & Output 10/25/16 10/26/16 10/26/16 18:59 06:59 18:59 Intake Total 1500 600 Output Total 1000 100 Balance 500 500 Intake: Intake, IV Amount 1000 100 D5-0.45NS 1,000 ml @ 75 1000 mls/hr IV .[id number] [facility] Rx #:[id number] cefTRIAXone 1 gm In 100 Sodium Chloride 0.9% 100 ml @ 100 mls/hr IV Q24HR [facility] Rx#:[id number] Oral 500 500 Output: Urine 1000 100 Other: # Voids 3 1 # Bowel Movements 1 Stool Characteristics Black Brown Black Active Medications: Current Medications Dextrose/Sodium Chloride (D5-0.45ns) 1,000 mls @ 75 mls/hr IV .[id number] [facility] Stop: 12/22/16 20:44 Last Admin: 10/25/16 19:05 Dose: 75 mls/hr Ceftriaxone Sodium 1 gm/ (Sodium Chloride) 100 mls @ 100 mls/hr IV Q24HR [facility] Stop: 12/23/16 20:59 Last Infusion: 10/25/16 21:50 Dose: Infused Ibuprofen (Motrin) 400 mg PO Q4H PRN PRN Reason: Pain or Fever >101 Stop: 12/22/16 20:39 Last Admin: 10/26/16 02:21 Dose: 400 mg Lactulose (Cephulac) 60 gm PO Q8H [facility] Stop: 12/22/16 20:44 Last Admin: 10/26/16 05:03 Dose: Not Given Pantoprazole Sodium (Protonix) 40 mg PO DAILY [facility] Stop: 12/25/16 08:59 Last Admin: 10/26/16 08:34 Dose: 40 mg Propranolol HCl (Inderal) 10 mg PO TID [facility] Stop: 12/24/16 20:59 Last Admin: 10/26/16 08:36 Dose: Not Given Rifaximin (Xifaxan) 600 mg PO BID [facility] Stop: 12/23/16 16:59 Last Admin: 10/26/16 08:35 Dose: 600 mg Assessment/Plan - Assessment Assessment: POSSIBLE SYNCOPE CIRRHOSIS SECONDRY TO ALCOHOLISM HTN HYPERLIPIDEMIA HEPATIC ENCEPHALOPATHY ANEMIA
[2016-10-26 11:04] LABS: HEMATOCRIT 32.1 % (39.0-49.0); HEMOGLOBIN 11.4 gm/dL (13.2-17.3); MEAN CELL VOLUME 99.3 fl (80-99); MEAN CORPUSCULAR HEMOGLOBIN 35.3 pg (26.0-30.0); MEAN CORPUSCULAR HGB CONC 35.5 pg (28.0-36.0); MEAN PLATELET VOLUME 7.5 fl; RED BLOOD COUNT 3.23 Mil/cmm (4.30-5.70); RED CELL DISTRIBUTION WIDTH 18.2 % (11.5-20.0)
[2016-10-26 11:05] LABS: WHITE BLOOD COUNT 4.8 Th/cmm (4.8-10.8)
[2016-10-26 11:06] LABS: PLATELET COUNT 67 Th/cmm (150-400)
[2016-10-26 11:18] LABS: FOLIC ACID 7.8 ng/mL (>3.0)
[2016-10-26 11:29] LABS: BAND NEUTROPHILE 1 % (0-10); EOSINOPHIL 3 % (0-5); NEUTROPHILS 74 % (40-80); PLATELET ESTIMATE DECREASED PLATELETS (NORMAL); PLATELET MORPHOLOGY NORMAL (NORMAL); TOTAL CELLS COUNTED 100
[2016-10-26 11:37] LABS: BUN - UREA NITROGEN 13 mg/dL (7-25); CALCIUM SERUM 8.2 mg/dL (8.6-10.3); CARBON DIOXIDE 25.4 mEq/L (21.0-31.0); CHLORIDE 105 mEq/L (98-107); CREATININE - SERUM 0.5 mg/dL (0.7-1.3); GLUCOSE 114 mg/dL (70-105); POTASSIUM SERUM 3.4 mEq/L (3.5-5.1); SODIUM SERUM 131 mEq/L (136-145)
--- NOTE | 2016-10-26 12:12 | Infectious Disease Prog Note ---
Infectious Disease Subjective - Review of Systems Service Date: 10/26/16 Subjective: There is no new change. Doing better. Infectious Disease Objective - Results Result Diagrams: 10/26/16 10:52 10/26/16 10:52 Recent Labs: Laboratory Last Values WBC 4.8 Th/cmm (4.8-10.8) D 10/26/16 10:52 RBC 3.23 Mil/cmm (4.30-5.70) L 10/26/16 10:52 Hgb 11.4 gm/dL (13.2-17.3) L 10/26/16 10:52 Hct 32.1 % (39.0-49.0) L 10/26/16 10:52 MCV 99.3 fl (80-99) H 10/26/16 10:52 MCH 35.3 pg (26.0-30.0) H 10/26/16 10:52 MCHC Differential 35.5 pg (28.0-36.0) 10/26/16 10:52 RDW 18.2 % (11.5-20.0) 10/26/16 10:52 Plt Count 67 Th/cmm (150-400) L D 10/26/16 10:52 MPV 7.5 fl 10/26/16 10:52 Band Neutrophils % 1 % (0-10) 10/26/16 10:52 Neutrophils (Manual) 74 % (40-80) 10/26/16 10:52 Lymphocytes 12 % (20-50) L 10/26/16 10:52 Monocytes 10 % (2-10) 10/26/16 10:52 Eosinophils 3 % (0-5) 10/26/16 10:52 Basophils 1 % (0-3) 10/23/16 14:30 Platelet Estimate DECREASED PLATELETS (NORMAL) 10/26/16 10:52 Platelet Morphology NORMAL (NORMAL) 10/26/16 10:52 Polychromasia 1+ 10/24/16 06:30 Anisocytosis 1+ 10/24/16 06:30 RBC Morph Micro Appear NORMAL (NORMAL) 10/26/16 10:52 PT 17.2 SECONDS (9.5-11.5) H 10/24/16 06:30 INR 1.68 (0.5-1.4) H 10/24/16 06:30 PTT (Actin FS) 33.6 SECONDS (26.0-38.0) 10/24/16 06:30 Sodium 131 mEq/L (136-145) L 10/26/16 10:52 Potassium 3.4 mEq/L (3.5-5.1) L 10/26/16 10:52 Chloride 105 mEq/L (98-107) 10/26/16 10:52 Carbon Dioxide 25.4 mEq/L (21.0-31.0) 10/26/16 10:52 Anion Gap 4.0 (7.0-16.0) L 10/26/16 10:52 BUN 13 mg/dL (7-25) 10/26/16 10:52 Creatinine 0.5 mg/dL (0.7-1.3) L 10/26/16 10:52 Est GFR ( Amer) > 60.0 ml/min (>90) 10/26/16 10:52 Est GFR (Non-Af Amer) > 60.0 ml/min 10/26/16 10:52 BUN/Creatinine Ratio 26.0 10/26/16 10:52 Glucose 114 mg/dL (70-105) H 10/26/16 10:52 Calcium 8.2 mg/dL (8.6-10.3) L 10/26/16 10:52 Total Bilirubin 3.8 mg/dL (0.3-1.0) H 10/25/16 06:05 Direct Bilirubin 2.01 mg/dL (0.0-0.2) H 10/25/16 06:05 AST 41 U/L (13-39) H 10/25/16 06:05 ALT 36 U/L (7-52) 10/25/16 06:05 Alkaline Phosphatase 85 U/L (34-104) 10/25/16 06:05 Ammonia 60 umol/L (16-53) H 10/24/16 06:30 Troponin I < 0.01 ng/mL (0.01-0.05) L 10/23/16 14:30 Total Protein 6.6 gm/dL (6.0-8.3) 10/25/16 06:05 Albumin 2.1 gm/dL (4.2-5.5) L 10/25/16 06:05 Globulin 4.5 gm/dL 10/25/16 06:05 Albumin/Globulin Ratio 0.5 (1.0-1.8) L 10/25/16 06:05 Triglycerides 63 mg/dL (<150) 10/23/16 14:30 Cholesterol 88 mg/dL (<200) 10/23/16 14:30 LDL Cholesterol Direct 53 mg/dL (75-193) L 10/23/16 14:30 HDL Cholesterol 30 mg/dL (23-92) 10/23/16 14:30 Amylase 34 U/L (29-103) 10/23/16 14:30 Vitamin B12 826 pg/mL (211-946) 10/25/16 06:05 Folic Acid 7.8 ng/mL (>3.0) 10/25/16 06:05 TSH 0.81 uIU/ml (0.34-5.60) 10/23/16 14:30 Urine Source CLEAN C 10/23/16 17:30 Urine Color ROBBIE 10/23/16 17:30 Urine Clarity SLIGHTLY CLOUDY (CLEAR) 10/23/16 17:30 Urine pH 5.5 10/23/16 17:30 Ur Specific [place] 1.025 (1.005-1.030) 10/23/16 17:30 Urine Protein TRACE mg/dL (NEGATIVE) 10/23/16 17:30 Urine Glucose (UA) NEGATIVE mg/dL (NEGATIVE) 10/23/16 17:30 Urine Ketones TRACE mg/dL (NEGATIVE) 10/23/16 17:30 Urine Blood NEGATIVE (NEGATIVE) 10/23/16 17:30 Urine Nitrate POSITIVE (NEGATIVE) H 10/23/16 17:30 Urine Bilirubin MODERATE (NEGATIVE) H 10/23/16 17:30 Urine Urobilinogen 4.0 E.U./dL (0.2 - 1.0) H 10/23/16 17:30 Ur Leukocyte Esterase NEGATIVE (NEGATIVE) 10/23/16 17:30 Urine RBC NONE SEEN /hpf (0-5) 10/23/16 17:30 Urine WBC 0-2 /hpf (0-5) 10/23/16 17:30 Ur Epithelial Cells OCCASIONAL /lpf (FEW) 10/23/16 17:30 Urine Bacteria FEW /hpf (NONE SEEN) 10/23/16 17:30 Urine Mucus MODERATE /lpf (FEW) 10/23/16 17:30 Stool Occult Blood NEGATIVE (NEGATIVE) 10/25/16 15:41 Urine Opiates Screen NEGATIVE (NEGATIVE) 10/25/16 11:48 Ur Barbiturates Screen NEGATIVE (NEGATIVE) 10/25/16 11:48 Ur Phencyclidine Scrn NEGATIVE (NEGATIVE) 10/25/16 11:48 Amphetamines Screen NEGATIVE (NEGATIVE) 10/25/16 11:48 U Methamphetamines Scrn NEGATIVE (NEGATIVE) 10/25/16 11:48 U Benzodiazepines Scrn NEGATIVE (NEGATIVE) 10/25/16 11:48 U Cocaine Metab Screen NEGATIVE (NEGATIVE) 10/25/16 11:48 U Cannabinoids Screen POSITIVE (NEGATIVE) H 10/25/16 11:48 RPR NONREACTIVE (NONREACTIVE) 10/23/16 14:30 - Physical Exam Vitals and I&O: Vital Signs Temp 98.4 F 10/26/16 08:00 Pulse 86 10/26/16 08:36 Resp 18 10/26/16 08:00 BP 109/77 10/26/16 08:36 Pulse Ox 98 10/26/16 08:00 Intake & Output 10/25/16 10/26/16 10/26/16 18:59 06:59 18:59 Intake Total 1500 600 Output Total 1000 100 Balance 500 500 Intake: Intake, IV Amount 1000 100 D5-0.45NS 1,000 ml @ 75 1000 mls/hr IV .[id number] [facility] Rx #:[id number] cefTRIAXone 1 gm In 100 Sodium Chloride 0.9% 100 ml @ 100 mls/hr IV Q24HR [facility] Rx#:[id number] Oral 500 500 Output: Urine 1000 100 Other: # Voids 3 1 # Bowel Movements 1 Stool Characteristics Black Brown Soft Black Formed Brown Black Active Medications: Current Medications Dextrose/Sodium Chloride (D5-0.45ns) 1,000 mls @ 75 mls/hr IV .[id number] [facility] Stop: 12/22/16 20:44 Last Admin: 10/25/16 19:05 Dose: 75 mls/hr Ceftriaxone Sodium 1 gm/ (Sodium Chloride) 100 mls @ 100 mls/hr IV Q24HR [facility] Stop: 12/23/16 20:59 Last Infusion: 10/25/16 21:50 Dose: Infused Ibuprofen (Motrin) 400 mg PO Q4H PRN PRN Reason: Pain or Fever >101 Stop: 12/22/16 20:39 Last Admin: 10/26/16 02:21 Dose: 400 mg Lactulose (Cephulac) 60 gm PO Q8H [facility] Stop: 12/22/16 20:44 Last Admin: 10/26/16 05:03 Dose: Not Given Pantoprazole Sodium (Protonix) 40 mg PO DAILY [facility] Stop: 12/25/16 08:59 Last Admin: 10/26/16 08:34 Dose: 40 mg Propranolol HCl (Inderal) 10 mg PO TID [facility] Stop: 12/24/16 20:59 Last Admin: 10/26/16 08:36 Dose: Not Given Rifaximin (Xifaxan) 600 mg PO BID [facility] Stop: 12/23/16 16:59 Last Admin: 10/26/16 08:35 Dose: 600 mg General: no acute distress, well developed, well nourished HEENT: atraumatic, normocephalic, PERRLA, EOMI, moist mucous membrane Neck: supple, no thyromegaly Cardiovascular: S1S2, regular Lungs: no clear to auscultation bilaterally, no clear to percussion Abdomen: soft, tender, no distended Extremities: no cyanosis, no clubbing, no edema Neurological: awake, alert, oriented Skin: intact Infectious Disease Assmt/Plan - Assessment Assessment: Impression: 1. Hepatic encephalopathy. Improved. 2. HepC 3. Cirrhosis. - Plan Plan: Radha davis. LAILA arroyo.
--- NOTE | 2016-10-26 12:59 | General Progress Note ---
Subjective - Review of Systems Service Date: 10/26/16 Subjective: EVENTS NOTED. NO GI BLEEDING. ARCHIE ORAL DIET. NO ABD PAIN. HAVING SOME L LEG PAIN. Objective - Results Result Diagrams: 10/26/16 10:52 10/26/16 10:52 Recent Labs: Laboratory Last Values WBC 4.8 Th/cmm (4.8-10.8) D 10/26/16 10:52 RBC 3.23 Mil/cmm (4.30-5.70) L 10/26/16 10:52 Hgb 11.4 gm/dL (13.2-17.3) L 10/26/16 10:52 Hct 32.1 % (39.0-49.0) L 10/26/16 10:52 MCV 99.3 fl (80-99) H 10/26/16 10:52 MCH 35.3 pg (26.0-30.0) H 10/26/16 10:52 MCHC Differential 35.5 pg (28.0-36.0) 10/26/16 10:52 RDW 18.2 % (11.5-20.0) 10/26/16 10:52 Plt Count 67 Th/cmm (150-400) L D 10/26/16 10:52 MPV 7.5 fl 10/26/16 10:52 Band Neutrophils % 1 % (0-10) 10/26/16 10:52 Neutrophils (Manual) 74 % (40-80) 10/26/16 10:52 Lymphocytes 12 % (20-50) L 10/26/16 10:52 Monocytes 10 % (2-10) 10/26/16 10:52 Eosinophils 3 % (0-5) 10/26/16 10:52 Basophils 1 % (0-3) 10/23/16 14:30 Platelet Estimate DECREASED PLATELETS (NORMAL) 10/26/16 10:52 Platelet Morphology NORMAL (NORMAL) 10/26/16 10:52 Polychromasia 1+ 10/24/16 06:30 Anisocytosis 1+ 10/24/16 06:30 RBC Morph Micro Appear NORMAL (NORMAL) 10/26/16 10:52 PT 17.2 SECONDS (9.5-11.5) H 10/24/16 06:30 INR 1.68 (0.5-1.4) H 10/24/16 06:30 PTT (Actin FS) 33.6 SECONDS (26.0-38.0) 10/24/16 06:30 Sodium 131 mEq/L (136-145) L 10/26/16 10:52 Potassium 3.4 mEq/L (3.5-5.1) L 10/26/16 10:52 Chloride 105 mEq/L (98-107) 10/26/16 10:52 Carbon Dioxide 25.4 mEq/L (21.0-31.0) 10/26/16 10:52 Anion Gap 4.0 (7.0-16.0) L 10/26/16 10:52 BUN 13 mg/dL (7-25) 10/26/16 10:52 Creatinine 0.5 mg/dL (0.7-1.3) L 10/26/16 10:52 Est GFR ( Amer) > 60.0 ml/min (>90) 10/26/16 10:52 Est GFR (Non-Af Amer) > 60.0 ml/min 10/26/16 10:52 BUN/Creatinine Ratio 26.0 10/26/16 10:52 Glucose 114 mg/dL (70-105) H 10/26/16 10:52 Calcium 8.2 mg/dL (8.6-10.3) L 10/26/16 10:52 Total Bilirubin 3.8 mg/dL (0.3-1.0) H 10/25/16 06:05 Direct Bilirubin 2.01 mg/dL (0.0-0.2) H 10/25/16 06:05 AST 41 U/L (13-39) H 10/25/16 06:05 ALT 36 U/L (7-52) 10/25/16 06:05 Alkaline Phosphatase 85 U/L (34-104) 10/25/16 06:05 Ammonia 60 umol/L (16-53) H 10/24/16 06:30 Troponin I < 0.01 ng/mL (0.01-0.05) L 10/23/16 14:30 Total Protein 6.6 gm/dL (6.0-8.3) 10/25/16 06:05 Albumin 2.1 gm/dL (4.2-5.5) L 10/25/16 06:05 Globulin 4.5 gm/dL 10/25/16 06:05 Albumin/Globulin Ratio 0.5 (1.0-1.8) L 10/25/16 06:05 Triglycerides 63 mg/dL (<150) 10/23/16 14:30 Cholesterol 88 mg/dL (<200) 10/23/16 14:30 LDL Cholesterol Direct 53 mg/dL (75-193) L 10/23/16 14:30 HDL Cholesterol 30 mg/dL (23-92) 10/23/16 14:30 Amylase 34 U/L (29-103) 10/23/16 14:30 Vitamin B12 826 pg/mL (211-946) 10/25/16 06:05 Folic Acid 7.8 ng/mL (>3.0) 10/25/16 06:05 TSH 0.81 uIU/ml (0.34-5.60) 10/23/16 14:30 Urine Source CLEAN C 10/23/16 17:30 Urine Color ROBBIE 10/23/16 17:30 Urine Clarity SLIGHTLY CLOUDY (CLEAR) 10/23/16 17:30 Urine pH 5.5 10/23/16 17:30 Ur Specific [place] 1.025 (1.005-1.030) 10/23/16 17:30 Urine Protein TRACE mg/dL (NEGATIVE) 10/23/16 17:30 Urine Glucose (UA) NEGATIVE mg/dL (NEGATIVE) 10/23/16 17:30 Urine Ketones TRACE mg/dL (NEGATIVE) 10/23/16 17:30 Urine Blood NEGATIVE (NEGATIVE) 10/23/16 17:30 Urine Nitrate POSITIVE (NEGATIVE) H 10/23/16 17:30 Urine Bilirubin MODERATE (NEGATIVE) H 10/23/16 17:30 Urine Urobilinogen 4.0 E.U./dL (0.2 - 1.0) H 10/23/16 17:30 Ur Leukocyte Esterase NEGATIVE (NEGATIVE) 10/23/16 17:30 Urine RBC NONE SEEN /hpf (0-5) 10/23/16 17:30 Urine WBC 0-2 /hpf (0-5) 10/23/16 17:30 Ur Epithelial Cells OCCASIONAL /lpf (FEW) 10/23/16 17:30 Urine Bacteria FEW /hpf (NONE SEEN) 10/23/16 17:30 Urine Mucus MODERATE /lpf (FEW) 10/23/16 17:30 Stool Occult Blood NEGATIVE (NEGATIVE) 10/25/16 15:41 Urine Opiates Screen NEGATIVE (NEGATIVE) 10/25/16 11:48 Ur Barbiturates Screen NEGATIVE (NEGATIVE) 10/25/16 11:48 Ur Phencyclidine Scrn NEGATIVE (NEGATIVE) 10/25/16 11:48 Amphetamines Screen NEGATIVE (NEGATIVE) 10/25/16 11:48 U Methamphetamines Scrn NEGATIVE (NEGATIVE) 10/25/16 11:48 U Benzodiazepines Scrn NEGATIVE (NEGATIVE) 10/25/16 11:48 U Cocaine Metab Screen NEGATIVE (NEGATIVE) 10/25/16 11:48 U Cannabinoids Screen POSITIVE (NEGATIVE) H 10/25/16 11:48 RPR NONREACTIVE (NONREACTIVE) 10/23/16 14:30 - Physical Exam Vitals and I&O: Vital Signs Temp 98.2 F 10/26/16 12:32 Pulse 88 10/26/16 12:32 Resp 19 10/26/16 12:32 BP 145/54 10/26/16 12:32 Pulse Ox 99 10/26/16 12:32 Intake & Output 10/25/16 10/26/16 10/26/16 18:59 06:59 18:59 Intake Total 1500 600 Output Total 1000 100 Balance 500 500 Intake: Intake, IV Amount 1000 100 D5-0.45NS 1,000 ml @ 75 1000 mls/hr IV .[id number] [facility] Rx #:[id number] cefTRIAXone 1 gm In 100 Sodium Chloride 0.9% 100 ml @ 100 mls/hr IV Q24HR [facility] Rx#:[id number] Oral 500 500 Output: Urine 1000 100 Other: # Voids 3 1 # Bowel Movements 1 Stool Characteristics Black Brown Soft Black Formed Brown Black Active Medications: Current Medications Dextrose/Sodium Chloride (D5-0.45ns) 1,000 mls @ 75 mls/hr IV .[id number] [facility] Stop: 12/22/16 20:44 Last Admin: 10/25/16 19:05 Dose: 75 mls/hr Ceftriaxone Sodium 1 gm/ (Sodium Chloride) 100 mls @ 100 mls/hr IV Q24HR [facility] Stop: 12/23/16 20:59 Last Infusion: 10/25/16 21:50 Dose: Infused Ibuprofen (Motrin) 400 mg PO Q4H PRN PRN Reason: Pain or Fever >101 Stop: 12/22/16 20:39 Last Admin: 10/26/16 02:21 Dose: 400 mg Lactulose (Cephulac) 60 gm PO Q8H [facility] Stop: 12/22/16 20:44 Last Admin: 10/26/16 05:03 Dose: Not Given Pantoprazole Sodium (Protonix) 40 mg PO DAILY [facility] Stop: 12/25/16 08:59 Last Admin: 10/26/16 08:34 Dose: 40 mg Propranolol HCl (Inderal) 10 mg PO TID [facility] Stop: 12/24/16 20:59 Last Admin: 10/26/16 08:36 Dose: Not Given Rifaximin (Xifaxan) 600 mg PO BID [facility] Stop: 12/23/16 16:59 Last Admin: 10/26/16 08:35 Dose: 600 mg General: Alert, No acute distress HEENT: Atraumatic Neck: Supple Cardiovascular: Regular rate Lungs: Clear to auscultation Abdomen: Bowel sounds, Soft, no Tender Assessment/Plan - Assessment Assessment: 1. DECOMPENSATED ALCOHOLIC CIRRHOSIS. 2. RECENT ESOPH VARICEAL BLEEDING S/P BANDING. 3. HEP ENCEPH. 4. ANEMIA. 5. THROMBOCYTOPENIA. 6. COAGULOPATHY. 7. CANNIBUS ABUSE. 8. L LEG PAIN R/O SCIATICA. - Plan Plan: 1. PROTONIX. 2. INDERAL. 3. 2 GM NA DIET. 4. NEEDS REPEAT EGD IN 2 MO TO REPEAT BANDING UNTIL VARICEAL OBLITERATION. 5. F/U LIVER LABS. 6. LACTULOSE AND RIFAXIMIN. 7. GI LANDA STABLE FOR D/C.
[2016-10-26] MEDS: cefTRIAXone 1 GM in Sodium Chloride 0.9% 100 ML IV SCH (22:07)
[2016-10-26] MEDS: D5-0.45NS 1,000 ML IV SCH (23:52)
[2016-10-27] MEDS: Lactulose 10 Gm/15 mL 30mL UDC PO SCH ×2 (05:44→13:12)
--- NOTE | 2016-10-27 09:50 | General Progress Note ---
Objective - Results Result Diagrams: 10/26/16 10:52 10/26/16 10:52 Recent Labs: Laboratory Last Values WBC 4.8 Th/cmm (4.8-10.8) D 10/26/16 10:52 RBC 3.23 Mil/cmm (4.30-5.70) L 10/26/16 10:52 Hgb 11.4 gm/dL (13.2-17.3) L 10/26/16 10:52 Hct 32.1 % (39.0-49.0) L 10/26/16 10:52 MCV 99.3 fl (80-99) H 10/26/16 10:52 MCH 35.3 pg (26.0-30.0) H 10/26/16 10:52 MCHC Differential 35.5 pg (28.0-36.0) 10/26/16 10:52 RDW 18.2 % (11.5-20.0) 10/26/16 10:52 Plt Count 67 Th/cmm (150-400) L D 10/26/16 10:52 MPV 7.5 fl 10/26/16 10:52 Band Neutrophils % 1 % (0-10) 10/26/16 10:52 Neutrophils (Manual) 74 % (40-80) 10/26/16 10:52 Lymphocytes 12 % (20-50) L 10/26/16 10:52 Monocytes 10 % (2-10) 10/26/16 10:52 Eosinophils 3 % (0-5) 10/26/16 10:52 Basophils 1 % (0-3) 10/23/16 14:30 Platelet Estimate DECREASED PLATELETS (NORMAL) 10/26/16 10:52 Platelet Morphology NORMAL (NORMAL) 10/26/16 10:52 Polychromasia 1+ 10/24/16 06:30 Anisocytosis 1+ 10/24/16 06:30 RBC Morph Micro Appear NORMAL (NORMAL) 10/26/16 10:52 PT 17.2 SECONDS (9.5-11.5) H 10/24/16 06:30 INR 1.68 (0.5-1.4) H 10/24/16 06:30 PTT (Actin FS) 33.6 SECONDS (26.0-38.0) 10/24/16 06:30 Sodium 131 mEq/L (136-145) L 10/26/16 10:52 Potassium 3.4 mEq/L (3.5-5.1) L 10/26/16 10:52 Chloride 105 mEq/L (98-107) 10/26/16 10:52 Carbon Dioxide 25.4 mEq/L (21.0-31.0) 10/26/16 10:52 Anion Gap 4.0 (7.0-16.0) L 10/26/16 10:52 BUN 13 mg/dL (7-25) 10/26/16 10:52 Creatinine 0.5 mg/dL (0.7-1.3) L 10/26/16 10:52 Est GFR ( Amer) > 60.0 ml/min (>90) 10/26/16 10:52 Est GFR (Non-Af Amer) > 60.0 ml/min 10/26/16 10:52 BUN/Creatinine Ratio 26.0 10/26/16 10:52 Glucose 114 mg/dL (70-105) H 10/26/16 10:52 Calcium 8.2 mg/dL (8.6-10.3) L 10/26/16 10:52 Total Bilirubin 3.8 mg/dL (0.3-1.0) H 10/25/16 06:05 Direct Bilirubin 2.01 mg/dL (0.0-0.2) H 10/25/16 06:05 AST 41 U/L (13-39) H 10/25/16 06:05 ALT 36 U/L (7-52) 10/25/16 06:05 Alkaline Phosphatase 85 U/L (34-104) 10/25/16 06:05 Ammonia 60 umol/L (16-53) H 10/24/16 06:30 Troponin I < 0.01 ng/mL (0.01-0.05) L 10/23/16 14:30 Total Protein 6.6 gm/dL (6.0-8.3) 10/25/16 06:05 Albumin 2.1 gm/dL (4.2-5.5) L 10/25/16 06:05 Globulin 4.5 gm/dL 10/25/16 06:05 Albumin/Globulin Ratio 0.5 (1.0-1.8) L 02/08/17 06:05 Triglycerides 63 mg/dL (<150) 10/23/16 14:30 Cholesterol 88 mg/dL (<200) 10/23/16 14:30 LDL Cholesterol Direct 53 mg/dL (75-193) L 10/23/16 14:30 HDL Cholesterol 30 mg/dL (23-92) 10/23/16 14:30 Amylase 34 U/L (29-103) 10/23/16 14:30 Vitamin B12 826 pg/mL (211-946) 10/25/16 06:05 Folic Acid 7.8 ng/mL (>3.0) 10/25/16 06:05 TSH 0.81 uIU/ml (0.34-5.60) 10/23/16 14:30 Urine Source CLEAN C 10/23/16 17:30 Urine Color ROBBIE 10/23/16 17:30 Urine Clarity SLIGHTLY CLOUDY (CLEAR) 10/23/16 17:30 Urine pH 5.5 10/23/16 17:30 Ur Specific [place] 1.025 (1.005-1.030) 10/23/16 17:30 Urine Protein TRACE mg/dL (NEGATIVE) 10/23/16 17:30 Urine Glucose (UA) NEGATIVE mg/dL (NEGATIVE) 10/23/16 17:30 Urine Ketones TRACE mg/dL (NEGATIVE) 10/23/16 17:30 Urine Blood NEGATIVE (NEGATIVE) 10/23/16 17:30 Urine Nitrate POSITIVE (NEGATIVE) H 10/23/16 17:30 Urine Bilirubin MODERATE (NEGATIVE) H 10/23/16 17:30 Urine Urobilinogen 4.0 E.U./dL (0.2 - 1.0) H 10/23/16 17:30 Ur Leukocyte Esterase NEGATIVE (NEGATIVE) 10/23/16 17:30 Urine RBC NONE SEEN /hpf (0-5) 10/23/16 17:30 Urine WBC 0-2 /hpf (0-5) 10/23/16 17:30 Ur Epithelial Cells OCCASIONAL /lpf (FEW) 10/23/16 17:30 Urine Bacteria FEW /hpf (NONE SEEN) 10/23/16 17:30 Urine Mucus MODERATE /lpf (FEW) 10/23/16 17:30 Stool Occult Blood NEGATIVE (NEGATIVE) 10/25/16 15:41 Urine Opiates Screen NEGATIVE (NEGATIVE) 10/25/16 11:48 Ur Barbiturates Screen NEGATIVE (NEGATIVE) 10/25/16 11:48 Ur Phencyclidine Scrn NEGATIVE (NEGATIVE) 10/25/16 11:48 Amphetamines Screen NEGATIVE (NEGATIVE) 10/25/16 11:48 U Methamphetamines Scrn NEGATIVE (NEGATIVE) 10/25/16 11:48 U Benzodiazepines Scrn NEGATIVE (NEGATIVE) 10/25/16 11:48 U Cocaine Metab Screen NEGATIVE (NEGATIVE) 10/25/16 11:48 U Cannabinoids Screen POSITIVE (NEGATIVE) H 10/25/16 11:48 RPR NONREACTIVE (NONREACTIVE) 10/23/16 14:30 - Physical Exam Vitals and I&O: Vital Signs Temp 99.1 F 10/27/16 07:53 Pulse 70 10/27/16 07:53 Resp 19 10/27/16 07:53 BP 133/64 10/27/16 07:53 Pulse Ox 96 10/27/16 07:53 Intake & Output 10/26/16 10/27/16 10/27/16 18:59 06:59 18:59 Intake Total 1500 100 Output Total 800 Balance 700 100 Intake: Intake, IV Amount 1000 100 D5-0.45NS 1,000 ml @ 75 1000 mls/hr IV .[id number] [facility] Rx #:[id number] cefTRIAXone 1 gm In 100 Sodium Chloride 0.9% 100 ml @ 100 mls/hr IV Q24HR [facility] Rx#:[id number] Oral 500 Output: Urine 800 Other: # Voids 2 # Bowel Movements 0 Stool Characteristics Soft Formed Brown Black Active Medications: Current Medications Dextrose/Sodium Chloride (D5-0.45ns) 1,000 mls @ 75 mls/hr IV .[id number] [facility] Stop: 12/22/16 20:44 Last Admin: 10/26/16 23:52 Dose: 75 mls/hr Ceftriaxone Sodium 1 gm/ (Sodium Chloride) 100 mls @ 100 mls/hr IV Q24HR [facility] Stop: 12/23/16 20:59 Last Infusion: 10/26/16 23:07 Dose: Infused Ibuprofen (Motrin) 400 mg PO Q4H PRN PRN Reason: Pain or Fever >101 Stop: 12/22/16 20:39 Last Admin: 10/26/16 02:21 Dose: 400 mg Lactulose (Cephulac) 60 gm PO Q8H [facility] Stop: 12/22/16 20:44 Last Admin: 10/27/16 05:44 Dose: Not Given Pantoprazole Sodium (Protonix) 40 mg PO DAILY [facility] Stop: 12/25/16 08:59 Last Admin: 10/26/16 08:34 Dose: 40 mg Propranolol HCl (Inderal) 10 mg PO TID [facility] Stop: 12/24/16 20:59 Last Admin: 10/26/16 22:06 Dose: 10 mg Rifaximin (Xifaxan) 600 mg PO BID [facility] Stop: 12/23/16 16:59 Last Admin: 10/26/16 16:13 Dose: 600 mg Assessment/Plan - Assessment Assessment: POSSIBLE SYNCOPE CIRRHOSIS SECONDRY TO ALCOHOLISM HTN HYPERLIPIDEMIA HEPATIC ENCEPHALOPATHY ANEMIA
[2016-10-27] MEDS: Pantoprazole 40 mg EC Tab PO SCH (09:52)
--- NOTE | 2016-10-27 12:01 | Infectious Disease Prog Note ---
Infectious Disease Subjective - Review of Systems Service Date: 10/27/16 Subjective: There is no new change. Doing better. Infectious Disease Objective - Results Result Diagrams: 10/26/16 10:52 10/26/16 10:52 Recent Labs: Laboratory Last Values WBC 4.8 Th/cmm (4.8-10.8) D 10/26/16 10:52 RBC 3.23 Mil/cmm (4.30-5.70) L 10/26/16 10:52 Hgb 11.4 gm/dL (13.2-17.3) L 10/26/16 10:52 Hct 32.1 % (39.0-49.0) L 10/26/16 10:52 MCV 99.3 fl (80-99) H 10/26/16 10:52 MCH 35.3 pg (26.0-30.0) H 10/26/16 10:52 MCHC Differential 35.5 pg (28.0-36.0) 10/26/16 10:52 RDW 18.2 % (11.5-20.0) 10/26/16 10:52 Plt Count 67 Th/cmm (150-400) L D 10/26/16 10:52 MPV 7.5 fl 10/26/16 10:52 Band Neutrophils % 1 % (0-10) 10/26/16 10:52 Neutrophils (Manual) 74 % (40-80) 10/26/16 10:52 Lymphocytes 12 % (20-50) L 10/26/16 10:52 Monocytes 10 % (2-10) 10/26/16 10:52 Eosinophils 3 % (0-5) 10/26/16 10:52 Basophils 1 % (0-3) 10/23/16 14:30 Platelet Estimate DECREASED PLATELETS (NORMAL) 10/26/16 10:52 Platelet Morphology NORMAL (NORMAL) 10/26/16 10:52 Polychromasia 1+ 10/24/16 06:30 Anisocytosis 1+ 10/24/16 06:30 RBC Morph Micro Appear NORMAL (NORMAL) 10/26/16 10:52 PT 17.2 SECONDS (9.5-11.5) H 10/24/16 06:30 INR 1.68 (0.5-1.4) H 10/24/16 06:30 PTT (Actin FS) 33.6 SECONDS (26.0-38.0) 10/24/16 06:30 Sodium 131 mEq/L (136-145) L 10/26/16 10:52 Potassium 3.4 mEq/L (3.5-5.1) L 10/26/16 10:52 Chloride 105 mEq/L (98-107) 10/26/16 10:52 Carbon Dioxide 25.4 mEq/L (21.0-31.0) 10/26/16 10:52 Anion Gap 4.0 (7.0-16.0) L 10/26/16 10:52 BUN 13 mg/dL (7-25) 10/26/16 10:52 Creatinine 0.5 mg/dL (0.7-1.3) L 10/26/16 10:52 Est GFR ( Amer) > 60.0 ml/min (>90) 10/26/16 10:52 Est GFR (Non-Af Amer) > 60.0 ml/min 10/26/16 10:52 BUN/Creatinine Ratio 26.0 10/26/16 10:52 Glucose 114 mg/dL (70-105) H 10/26/16 10:52 Calcium 8.2 mg/dL (8.6-10.3) L 10/26/16 10:52 Total Bilirubin 3.8 mg/dL (0.3-1.0) H 10/25/16 06:05 Direct Bilirubin 2.01 mg/dL (0.0-0.2) H 10/25/16 06:05 AST 41 U/L (13-39) H 10/25/16 06:05 ALT 36 U/L (7-52) 10/25/16 06:05 Alkaline Phosphatase 85 U/L (34-104) 10/25/16 06:05 Ammonia 60 umol/L (16-53) H 10/24/16 06:30 Troponin I < 0.01 ng/mL (0.01-0.05) L 10/23/16 14:30 Total Protein 6.6 gm/dL (6.0-8.3) 10/25/16 06:05 Albumin 2.1 gm/dL (4.2-5.5) L 10/25/16 06:05 Globulin 4.5 gm/dL 10/25/16 06:05 Albumin/Globulin Ratio 0.5 (1.0-1.8) L 10/25/16 06:05 Triglycerides 63 mg/dL (<150) 10/23/16 14:30 Cholesterol 88 mg/dL (<200) 10/23/16 14:30 LDL Cholesterol Direct 53 mg/dL (75-193) L 10/23/16 14:30 HDL Cholesterol 30 mg/dL (23-92) 10/23/16 14:30 Amylase 34 U/L (29-103) 10/23/16 14:30 Vitamin B12 826 pg/mL (211-946) 10/25/16 06:05 Folic Acid 7.8 ng/mL (>3.0) 10/25/16 06:05 TSH 0.81 uIU/ml (0.34-5.60) 10/23/16 14:30 Urine Source CLEAN C 10/23/16 17:30 Urine Color ROBBIE 10/23/16 17:30 Urine Clarity SLIGHTLY CLOUDY (CLEAR) 10/23/16 17:30 Urine pH 5.5 10/23/16 17:30 Ur Specific [place] 1.025 (1.005-1.030) 10/23/16 17:30 Urine Protein TRACE mg/dL (NEGATIVE) 10/23/16 17:30 Urine Glucose (UA) NEGATIVE mg/dL (NEGATIVE) 10/23/16 17:30 Urine Ketones TRACE mg/dL (NEGATIVE) 10/23/16 17:30 Urine Blood NEGATIVE (NEGATIVE) 10/23/16 17:30 Urine Nitrate POSITIVE (NEGATIVE) H 10/23/16 17:30 Urine Bilirubin MODERATE (NEGATIVE) H 10/23/16 17:30 Urine Urobilinogen 4.0 E.U./dL (0.2 - 1.0) H 10/23/16 17:30 Ur Leukocyte Esterase NEGATIVE (NEGATIVE) 10/23/16 17:30 Urine RBC NONE SEEN /hpf (0-5) 10/23/16 17:30 Urine WBC 0-2 /hpf (0-5) 10/23/16 17:30 Ur Epithelial Cells OCCASIONAL /lpf (FEW) 10/23/16 17:30 Urine Bacteria FEW /hpf (NONE SEEN) 10/23/16 17:30 Urine Mucus MODERATE /lpf (FEW) 10/23/16 17:30 Stool Occult Blood NEGATIVE (NEGATIVE) 10/25/16 15:41 Urine Opiates Screen NEGATIVE (NEGATIVE) 10/25/16 11:48 Ur Barbiturates Screen NEGATIVE (NEGATIVE) 10/25/16 11:48 Ur Phencyclidine Scrn NEGATIVE (NEGATIVE) 10/25/16 11:48 Amphetamines Screen NEGATIVE (NEGATIVE) 10/25/16 11:48 U Methamphetamines Scrn NEGATIVE (NEGATIVE) 10/25/16 11:48 U Benzodiazepines Scrn NEGATIVE (NEGATIVE) 10/25/16 11:48 U Cocaine Metab Screen NEGATIVE (NEGATIVE) 10/25/16 11:48 U Cannabinoids Screen POSITIVE (NEGATIVE) H 10/25/16 11:48 RPR NONREACTIVE (NONREACTIVE) 10/23/16 14:30 - Physical Exam Vitals and I&O: Vital Signs Temp 99.1 F 10/27/16 07:53 Pulse 70 10/27/16 07:53 Resp 19 10/27/16 07:53 BP 133/64 10/27/16 07:53 Pulse Ox 96 10/27/16 07:53 Intake & Output 10/26/16 10/27/16 10/27/16 18:59 06:59 18:59 Intake Total 1500 100 Output Total 800 Balance 700 100 Intake: Intake, IV Amount 1000 100 D5-0.45NS 1,000 ml @ 75 1000 mls/hr IV .[id number] [facility] Rx #:[id number] cefTRIAXone 1 gm In 100 Sodium Chloride 0.9% 100 ml @ 100 mls/hr IV Q24HR [facility] Rx#:[id number] Oral 500 Output: Urine 800 Other: # Voids 2 # Bowel Movements 0 Stool Characteristics Soft Formed Brown Black Active Medications: Current Medications Dextrose/Sodium Chloride (D5-0.45ns) 1,000 mls @ 75 mls/hr IV .[id number] [facility] Stop: 12/22/16 20:44 Last Admin: 10/26/16 23:52 Dose: 75 mls/hr Ceftriaxone Sodium 1 gm/ (Sodium Chloride) 100 mls @ 100 mls/hr IV Q24HR [facility] Stop: 12/23/16 20:59 Last Infusion: 10/26/16 23:07 Dose: Infused Ibuprofen (Motrin) 400 mg PO Q4H PRN PRN Reason: Pain or Fever >101 Stop: 12/22/16 20:39 Last Admin: 10/26/16 02:21 Dose: 400 mg Lactulose (Cephulac) 60 gm PO Q8H [facility] Stop: 12/22/16 20:44 Last Admin: 10/27/16 05:44 Dose: Not Given Pantoprazole Sodium (Protonix) 40 mg PO DAILY [facility] Stop: 12/25/16 08:59 Last Admin: 10/27/16 09:52 Dose: Not Given Propranolol HCl (Inderal) 10 mg PO TID [facility] Stop: 12/24/16 20:59 Last Admin: 10/27/16 09:52 Dose: Not Given Rifaximin (Xifaxan) 600 mg PO BID [facility] Stop: 12/23/16 16:59 Last Admin: 10/27/16 09:52 Dose: Not Given General: no acute distress, well developed, well nourished HEENT: atraumatic, normocephalic, PERRLA, EOMI Neck: supple, no thyromegaly, no lymphadenopathy Cardiovascular: S1S2, regular Lungs: clear to auscultation bilaterally, clear to percussion Abdomen: soft, no tender, no distended Extremities: no cyanosis, no clubbing, no edema Neurological: awake, alert, oriented, CN 2-12 intact Infectious Disease Assmt/Plan - Assessment Assessment: Impression: 1. Hepatic encephalopathy. Improved. 2. HepC 3. Cirrhosis. - Plan Plan: laila davis. LAILA arroyo.
[2016-10-27 12:14] LABS: AFP TUMOR MARKER 2.7 ng/mL (0.0-8.3); FERRITIN 521 ng/mL (30-400); GAMMA GLUTAMYL TRANSFERASE 110 IU/L (0-65); HEP B CORE IGM Negative (Negative); HEP C ANTIBODY >11.0 s/co ratio (0.0-0.9); IRON SATURATION 24 % (15-55); TIBC (LCI) 175 ug/dL (250-450); UIBC 133 ug/dL (111-343)
--- NOTE | 2016-10-27 18:32 | General Progress Note ---
Subjective - Review of Systems Service Date: 10/27/16 Subjective: EVENTS NOTED. NO GI BLEEDING. ARCHIE ORAL DIET. NO ABD PAIN. Objective - Results Result Diagrams: 10/26/16 10:52 10/26/16 10:52 Recent Labs: Laboratory Last Values WBC 4.8 Th/cmm (4.8-10.8) D 10/26/16 10:52 RBC 3.23 Mil/cmm (4.30-5.70) L 10/26/16 10:52 Hgb 11.4 gm/dL (13.2-17.3) L 10/26/16 10:52 Hct 32.1 % (39.0-49.0) L 10/26/16 10:52 MCV 99.3 fl (80-99) H 10/26/16 10:52 MCH 35.3 pg (26.0-30.0) H 10/26/16 10:52 MCHC Differential 35.5 pg (28.0-36.0) 10/26/16 10:52 RDW 18.2 % (11.5-20.0) 10/26/16 10:52 Plt Count 67 Th/cmm (150-400) L D 10/26/16 10:52 MPV 7.5 fl 10/26/16 10:52 Band Neutrophils % 1 % (0-10) 10/26/16 10:52 Neutrophils (Manual) 74 % (40-80) 10/26/16 10:52 Lymphocytes 12 % (20-50) L 10/26/16 10:52 Monocytes 10 % (2-10) 10/26/16 10:52 Eosinophils 3 % (0-5) 10/26/16 10:52 Basophils 1 % (0-3) 10/23/16 14:30 Platelet Estimate DECREASED PLATELETS (NORMAL) 10/26/16 10:52 Platelet Morphology NORMAL (NORMAL) 10/26/16 10:52 Polychromasia 1+ 10/24/16 06:30 Anisocytosis 1+ 10/24/16 06:30 RBC Morph Micro Appear NORMAL (NORMAL) 10/26/16 10:52 PT 17.2 SECONDS (9.5-11.5) H 10/24/16 06:30 INR 1.68 (0.5-1.4) H 10/24/16 06:30 PTT (Actin FS) 33.6 SECONDS (26.0-38.0) 10/24/16 06:30 Sodium 131 mEq/L (136-145) L 10/26/16 10:52 Potassium 3.4 mEq/L (3.5-5.1) L 10/26/16 10:52 Chloride 105 mEq/L (98-107) 10/26/16 10:52 Carbon Dioxide 25.4 mEq/L (21.0-31.0) 10/26/16 10:52 Anion Gap 4.0 (7.0-16.0) L 10/26/16 10:52 BUN 13 mg/dL (7-25) 10/26/16 10:52 Creatinine 0.5 mg/dL (0.7-1.3) L 10/26/16 10:52 Est GFR ( Amer) > 60.0 ml/min (>90) 10/26/16 10:52 Est GFR (Non-Af Amer) > 60.0 ml/min 10/26/16 10:52 BUN/Creatinine Ratio 26.0 10/26/16 10:52 Glucose 114 mg/dL (70-105) H 10/26/16 10:52 Calcium 8.2 mg/dL (8.6-10.3) L 10/26/16 10:52 Iron 42 ug/dL (38-169) 10/25/16 06:05 TIBC 175 ug/dL (250-450) L 10/25/16 06:05 Iron Saturation 24 % (15-55) 10/25/16 06:05 Unsaturated IBC 133 ug/dL (111-343) 10/25/16 06:05 Ferritin 521 ng/mL (30-400) H 10/25/16 06:05 Total Bilirubin 3.8 mg/dL (0.3-1.0) H 10/25/16 06:05 Direct Bilirubin 2.01 mg/dL (0.0-0.2) H 10/25/16 06:05 GGTP 110 IU/L (0-65) H 10/25/16 06:05 AST 41 U/L (13-39) H 10/25/16 06:05 ALT 36 U/L (7-52) 10/25/16 06:05 Alkaline Phosphatase 85 U/L (34-104) 10/25/16 06:05 Ammonia 60 umol/L (16-53) H 10/24/16 06:30 Troponin I < 0.01 ng/mL (0.01-0.05) L 10/23/16 14:30 Total Protein 6.6 gm/dL (6.0-8.3) 10/25/16 06:05 Albumin 2.1 gm/dL (4.2-5.5) L 10/25/16 06:05 Globulin 4.5 gm/dL 10/25/16 06:05 Albumin/Globulin Ratio 0.5 (1.0-1.8) L 10/25/16 06:05 Ceruloplasmin 27.0 mg/dL (16.0-31.0) 10/25/16 06:05 Triglycerides 63 mg/dL (<150) 10/23/16 14:30 Cholesterol 88 mg/dL (<200) 10/23/16 14:30 LDL Cholesterol Direct 53 mg/dL (75-193) L 10/23/16 14:30 HDL Cholesterol 30 mg/dL (23-92) 10/23/16 14:30 Amylase 34 U/L (29-103) 10/23/16 14:30 Tumor Marker AFP 2.7 ng/mL (0.0-8.3) 10/25/16 06:05 Vitamin B12 826 pg/mL (211-946) 10/25/16 06:05 Folic Acid 7.8 ng/mL (>3.0) 10/25/16 06:05 TSH 0.81 uIU/ml (0.34-5.60) 10/23/16 14:30 Urine Source CLEAN C 10/23/16 17:30 Urine Color ROBBIE 10/23/16 17:30 Urine Clarity SLIGHTLY CLOUDY (CLEAR) 10/23/16 17:30 Urine pH 5.5 10/23/16 17:30 Ur Specific Alicia 1.025 (1.005-1.030) 10/23/16 17:30 Urine Protein TRACE mg/dL (NEGATIVE) 10/23/16 17:30 Urine Glucose (UA) NEGATIVE mg/dL (NEGATIVE) 10/23/16 17:30 Urine Ketones TRACE mg/dL (NEGATIVE) 10/23/16 17:30 Urine Blood NEGATIVE (NEGATIVE) 10/23/16 17:30 Urine Nitrate POSITIVE (NEGATIVE) H 10/23/16 17:30 Urine Bilirubin MODERATE (NEGATIVE) H 10/23/16 17:30 Urine Urobilinogen 4.0 E.U./dL (0.2 - 1.0) H 10/23/16 17:30 Ur Leukocyte Esterase NEGATIVE (NEGATIVE) 10/23/16 17:30 Urine RBC NONE SEEN /hpf (0-5) 10/23/16 17:30 Urine WBC 0-2 /hpf (0-5) 10/23/16 17:30 Ur Epithelial Cells OCCASIONAL /lpf (FEW) 10/23/16 17:30 Urine Bacteria FEW /hpf (NONE SEEN) 10/23/16 17:30 Urine Mucus MODERATE /lpf (FEW) 10/23/16 17:30 Stool Occult Blood NEGATIVE (NEGATIVE) 10/25/16 15:41 Urine Opiates Screen NEGATIVE (NEGATIVE) 10/25/16 11:48 Ur Barbiturates Screen NEGATIVE (NEGATIVE) 10/25/16 11:48 Ur Phencyclidine Scrn NEGATIVE (NEGATIVE) 10/25/16 11:48 Amphetamines Screen NEGATIVE (NEGATIVE) 10/25/16 11:48 U Methamphetamines Scrn NEGATIVE (NEGATIVE) 10/25/16 11:48 U Benzodiazepines Scrn NEGATIVE (NEGATIVE) 10/25/16 11:48 U Cocaine Metab Screen NEGATIVE (NEGATIVE) 10/25/16 11:48 U Cannabinoids Screen POSITIVE (NEGATIVE) H 10/25/16 11:48 Anti-Mitochondrial Ab 11.5 Units (0.0-20.0) 10/25/16 06:05 RPR NONREACTIVE (NONREACTIVE) 10/23/16 14:30 Hepatitis A IgM Ab Negative (Negative) 10/25/16 06:05 Hep Bs Antigen Negative (Negative) 10/25/16 06:05 Hep B Core IgM Ab Negative (Negative) 10/25/16 06:05 Hepatitis C Antibody >11.0 s/co ratio (0.0-0.9) H 10/25/16 06:05 - Physical Exam Vitals and I&O: Vital Signs Temp 99.2 F 10/27/16 16:46 Pulse 74 10/27/16 16:46 Resp 18 10/27/16 16:46 BP 130/97 10/27/16 16:46 Pulse Ox 97 10/27/16 16:46 Intake & Output 10/26/16 10/27/16 10/27/16 18:59 06:59 18:59 Intake Total 1500 100 Output Total 800 Balance 700 100 Intake: Intake, IV Amount 1000 100 D5-0.45NS 1,000 ml @ 75 1000 mls/hr IV .[id number] AGATHA Rx #:[id number] cefTRIAXone 1 gm In 100 Sodium Chloride 0.9% 100 ml @ 100 mls/hr IV Q24HR AGATHA Rx#:[id number] Oral 500 Output: Urine 800 Other: # Voids 2 # Bowel Movements 0 Stool Characteristics Soft Formed Brown Black General: Alert HEENT: Atraumatic Neck: Supple Cardiovascular: Regular rate Lungs: Clear to auscultation Abdomen: Bowel sounds, Soft, no Tender Assessment/Plan - Assessment Assessment: 1. DECOMPENSATED ALCOHOLIC CIRRHOSIS. 2. RECENT ESOPH VARICEAL BLEEDING S/P BANDING. 3. HEP ENCEPH. 4. ANEMIA. 5. THROMBOCYTOPENIA. 6. COAGULOPATHY. 7. CANNIBUS ABUSE. 8. L LEG PAIN R/O SCIATICA. - Plan Plan: 1. PROTONIX. 2. INDERAL. 3. 2 GM NA DIET. 4. NEEDS REPEAT EGD IN 2 MO TO REPEAT BANDING UNTIL VARICEAL OBLITERATION. 5. F/U LIVER LABS. 6. LACTULOSE AND RIFAXIMIN. 7. GI LANDA STABLE FOR D/C.
--- NOTE | 2016-10-30 19:30 | Discharge Summary ---
HOSPITAL COURSE: The patient was admitted from home through the Emergency Room with chief complaint of weakness, and then from ER, CT scan was done and CT scan came out negative. Blood works came out with elevated liver enzymes, elevated ammonia, and low platelet. The patient was admitted to Med/Surg floor. The patient was admitted for monitoring and observation. The patient then was discharged back home with instructions to follow up with primary doctor. DISCHARGE DIAGNOSES: 1. Chronic hepatitis C. 2. Liver cirrhosis. 3. Hepatic encephalopathy. 4. Multiple drug misuse. 5. Hypertension. 6. Anemia. JOB# [id number]
== END 2016-10-27 17:50 | disposition home or self-care (01) | DRG 280 ==
LOC: ER 15:01 → MSI 19:30
PROVIDERS: ADMIT Internal Medicine; ATTEND Internal Medicine
DX: K70.30 Alcoholic cirrhosis of liver without ascites (principal); E41 Nutritional marasmus; D68.9 Coagulation defect, unspecified; D69.59 Other secondary thrombocytopenia; F03.90 Unspecified dementia, unspecified severity, without behavioral disturbance, psychotic disturbance, mood disturbance, and anxiety; E44.1 Mild protein-calorie malnutrition; D64.9 Anemia, unspecified; K72.00 Acute and subacute hepatic failure without coma; N39.0 Urinary tract infection, site not specified; I10 Essential (primary) hypertension; R55 Syncope and collapse; E78.5 Hyperlipidemia, unspecified; B18.2 Chronic viral hepatitis C; K21.9 Gastro-esophageal reflux disease without esophagitis; F32.9 Major depressive disorder, single episode, unspecified; F19.10 Other psychoactive substance abuse, uncomplicated; F12.10 Cannabis abuse, uncomplicated; M79.605 Pain in left leg; Z88.0 Allergy status to penicillin
CPT/HCPCS: 36415-UA; 71010-TC; 76700-TC; 80048-TC; 80053-TC; 80061-TC; 80074-90; 80076-TC; 81001-TC; 82105-90; 82140-TC; 82150-TC; 82270-TC; 82390-90; 82607-90; 82728-90; 82746-90; 82977-90; 83540-90; 83550-90; 84443-TC; 84484-TC; 85007-TC; 85027-TC; 85610-TC; 85730-TC; 86255-90; 86592-TC; 93005; J0696; Z7610

== ENCOUNTER 2016-12-26 16:37 | Emergency (ER) | payer MEDICAID ==
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
== END 2016-12-26 17:35 | disposition home or self-care (01) ==
LOC: ER 16:37
DX: S61.411A Laceration without foreign body of right hand, initial encounter (principal); I10 Essential (primary) hypertension; E78.5 Hyperlipidemia, unspecified; F17.200 Nicotine dependence, unspecified, uncomplicated; Z88.0 Allergy status to penicillin; V19.9XXA Pedal cyclist (driver) (passenger) injured in unspecified traffic accident, initial encounter; Y93.89 Activity, other specified; Y92.89 Other specified places as the place of occurrence of the external cause; Y99.8 Other external cause status
CPT/HCPCS: Z7502